=== PATIENT | male | born 1950 | race Two or more races ===

== ENCOUNTER 2019-07-20 14:28 | Inpatient (IN) | payer OTHER, MEDICARE ==
[~2019-07-20] VITALS: Ht 167.6 cm; Wt 54.4 kg
--- NOTE | 2019-07-20 15:01 | NUR ---
dr qiu at bedside for eval.
[2019-07-20] MEDS ORDERED: ALTEPLASE CATHFLO 2 MG/VIAL XX ONE (15:30)
--- NOTE | 2019-07-20 16:01 | NUR ---
CALLED DR. ALEJANDRO PT TO BE ADMITTED WITH [facility]. DR. JUANITA ALEJANDRO WILL LOOK AT THE PT.
--- NOTE | 2019-07-20 16:06 | NUR ---
CATHFLO ACTIVASE NOT ADMINISTERED. GOOD BLOOD RETURN AND FLUSHING WELL, WITNESSED BY TRI MCCURDY. PINA BELLO MADE AWARE.
--- NOTE | 2019-07-20 16:39 | NUR ---
GOT BED 328 TY.
[2019-07-20 16:40] LABS: BASOPHILS % (AUTO) 0.4 % (0.0-2.0); EOSINOPHILS % (AUTO) 6.6 % (0.0-6.0); HEMATOCRIT 25 % (39-51); HEMOGLOBIN 8.4 g/dL (13.5-17.5); LYMPHOCYTES # (AUTO) 1.7 /CMM (0.8-4.8); MEAN CORPUSCULAR HGB CONC 34 g/dl (31.0-36.0); MEAN CORPUSCULAR VOLUME 97 fL (80-96); MONOCYTES # (AUTO) 0.6 /CMM (0.1-1.30); MONOCYTES % (AUTO) 5.2 % (2.0-12.0); NEUTROPHILS # (AUTO) 8.5 /CMM (1.8-8.9); NEUTROPHILS % (AUTO) 72.8 % (43.0-81.0); PLATELET COUNT (AUTO) 214 /CMM (150-450); RED BLOOD CELL COUNT(AUTO) 2.55 MIL/uL (4.5-6.0); WHITE BLOOD COUNT (AUTO) 11.7 K/uL (4.3-11.0)
--- NOTE | 2019-07-20 16:42 | NUR ---
CALLED [facility] FOR PT TO BE ADMITTED
[2019-07-20 16:47] LABS: CALCIUM, SERUM 8.8 mg/dL (8.5-10.1); CREATININE 4.5 mg/dL (0.6-1.3); POTASSIUM 4.2 mmol/L (3.5-5.1)
--- NOTE | 2019-07-20 17:02 | NUR ---
report given to skyler boss for fredrick.
[2019-07-20] MEDS ORDERED: AMIN30LI27 GT (17:45)
[2019-07-20] MEDS ORDERED: ENTE0.5T4 GT (17:45)
[2019-07-20] MEDS ORDERED: URSO300C12 GT (17:45)
[2019-07-20] MEDS ORDERED: MELA5TAB GT (17:45)
[2019-07-20] MEDS ORDERED: VORI200T GT (17:45)
[2019-07-20] MEDS ORDERED: VITA1TAB56 GT (17:45)
[2019-07-20] MEDS ORDERED: CYCL25CA7 GT (17:45)
[2019-07-20] MEDS ORDERED: AMLO10TA7 GT (17:45)
[2019-07-20] MEDS ORDERED: ACET-868 GT (17:45)
[2019-07-20] MEDS ORDERED: FAMO20TA8 GT (17:45)
[2019-07-20] MEDS ORDERED: IPRA4AER IH (17:45)
[2019-07-20] MEDS ORDERED: CYCL25CA13 GT (17:45)
[2019-07-20] MEDS ORDERED: NPH,100V SQ (17:45)
[2019-07-20] MEDS ORDERED: NUT.237L67 GT (17:45)
[2019-07-20] MEDS ORDERED: SEVE0.8P3 GT (17:45)
[2019-07-20] MEDS ORDERED: CARB15DR EACHEYE (17:45)
[2019-07-20] MEDS ORDERED: LEVO50TA8 GT (17:45)
[2019-07-20] MEDS ORDERED: ASCO250T5 GT (17:45)
[2019-07-20] MEDS ORDERED: DEXT15DR6 EACHEYE (17:47)
--- NOTE | 2019-07-20 18:15 | NUR ---
RN NOTES RECEIVED PATIENT FROM E.R VIA BREANNE ACCOMPANIED BY E.R STAFF. NON-VERBAL, PATIENT ORIENTED TO ROOM, UNIT AND STAFF. V/S FOLLOWS: BP- 112/56, ME-102, RR-20, TEMP OF 97.7. O2 SAT OF 98%. WILL ENDORSE TO NON DESTRUCTIVE TESTING SUPERVISOR NURSE FOR ADMISSION.
[2019-07-20 20:00] VITALS: BP 126/73
--- NOTE | 2019-07-20 22:29 | NUR ---
MS/TELE/RN INITIAL ROUND AT 1930 , PATIENT WAS SLEEPING, AROUSABLE, APPEAR COMFORTABLE, NO DISTRESS NOTED, WITH TRACH TO WALL OXYGEN 1T 8 LPM, HOB ELEVATED, WILL DO ADMISSION ASSESSMENT LATER.
--- NOTE | 2019-07-20 22:32 | NUR ---
MS/TELE/RN CALLED AND SPOKE TO LATHE SPOTTER IN FACE SHEET, LULA, WALLY, DAUGHTER, FOR DIALYSIS CATHETER PLACEMENT, PER LULA, HER BROTHER WILL GIVEN THE CONSENT. SPOKE TO CHANCE CLANCY, SON OF PATIENT, WHO GAVE TELEPHONE CONSENT FOR THE SURGERY, AND WITNESSED BY TASHIA MUIR.
--- NOTE | 2019-07-20 22:35 | NUR ---
MS/TELE/RN AT 2100 ADMISSION ASSESSMENT DONE, PATIENT UNABLE TO GIVE HISTORY HE WAS NOT VERBALLY RESPONSIVE. PHYSICAL ASSESSMENT WAS DONE, PHOTOS TAKEN ON ABNORMAL FINDINGS, NURSING CARE PERFORMED, REPOSITIONED TO COMFORT. WILL MONITOR.,
--- NOTE | 2019-07-20 22:51 | NUR ---
MS/TELE/RN PATIENT WILL BE TRANSFERRED TO [facility] DUE TO R/O COVID 19 ISOLATION STATUS. REPORT GIVEN TO KAZ RODRÍGUEZ.
--- NOTE | 2019-07-20 23:15 | NUR ---
RN Notes Admitted patient from [facility], awake, non verbal. Trach intact with O2 at 8LPM tolerating well. Tele monitor reads sinus rhythm with heart rate at 96. Gt intact will start feeding. Rodriguez intact to gravity. Colostomy intact not leaking. Skin assessment done, intact. Kept dry and comfortable. Will continue to monitor.
--- NOTE | 2019-07-20 23:23 | NUR ---
MS/TELE/RN PATIENT WAS TRANSFERRED TO [facility] ROOM 105.
--- NOTE | 2019-07-20 23:38 | NUR ---
MS/TELE/RN RECEIVED PATIENT FROM [facility] VIA BED, PATIENT IS AWAKE, ALERT, ORIENTED, COMFORTABLE, NO DISTRESS NOTED, PLACED CALL LIGHT IN REACH, WILL MONITOR.
[2019-07-21] VITALS (7 sets, daily range): BP systolic 99–121; BP diastolic 56–66
[2019-07-21 06:25] LABS: BASOPHILS % (AUTO) 0.3 % (0.0-2.0); EOSINOPHILS % (AUTO) 7.3 % (0.0-6.0); HEMATOCRIT 22 % (39-51); LYMPHOCYTES % (AUTO) 11.6 % (20.0-44.0); MEAN CORPUSCULAR HGB CONC 36 g/dl (31.0-36.0); MEAN CORPUSCULAR VOLUME 97 fL (80-96); MONOCYTES # (AUTO) 0.5 /CMM (0.1-1.30); MONOCYTES % (AUTO) 6.3 % (2.0-12.0); NEUTROPHILS # (AUTO) 6.3 /CMM (1.8-8.9); NEUTROPHILS % (AUTO) 74.5 % (43.0-81.0); PLATELET COUNT (AUTO) 188 /CMM (150-450); RED BLOOD CELL COUNT(AUTO) 2.26 MIL/uL (4.5-6.0); WHITE BLOOD COUNT (AUTO) 8.5 K/uL (4.3-11.0)
[2019-07-21] MEDS: NEPRO 1,000 ML BOTTLE GT SCH ×2 (06:39→22:30)
--- NOTE | 2019-07-21 06:41 | NUR ---
RN Notes Patient stable, afebrile. No signs of distress and discomfort noted. Telemonitor reads sinus rhythm. At times patient is combative, he doesn't want to be touch. GT feeding tolerated well. Colostomy intact, not leaking and working well. Turned and repositioned per protocol. Will continue to monitor.
--- NOTE | 2019-07-21 08:00 | NUR ---
PATIENT WAS RESTING IN ROOM ROOM WHEN I ARRIVED ON THE UNIT- NO S/S OF DISTRESS- AFEBRILE- NC IN USE-VITALS STABLE- SAFETY PRECAUTIONS IN PLACE- ISOLATION ROOM ACTIVE- WILL CONTINUE TO MONITOR REPORT AND RECORD
[2019-07-21 08:49] LABS: IRON, SERUM 63 ug/dl (50-175); TOTAL IRON BINDING CAPACITY 124 ug/dl (250-450)
[2019-07-21] MEDS: POLYVINYL ALCOHOL 15 ML BOTTLE EACHEYE SCH (09:00)
[2019-07-21] MEDS: AMLODIPINE BESYLATE 10 MG TABLET GT SCH (09:00)
[2019-07-21] MEDS ORDERED: ACETAMINOPHEN 650 MG/20.3 ML UDC GT PRN (09:00)
[2019-07-21] MEDS ORDERED: POLYVINYL ALCOHOL/POVIDONE 0.4 ML DROPERETTE EACHEYE SCH (09:00)
[2019-07-21] MEDS ORDERED: NEPRO VAN 237 ML CAN GT SCH (09:00)
[2019-07-21 09:28] LABS: CHOLESTEROL 85 mg/dL (<200); FERRITIN 2807 ng/mL (8-388); HDL CHOLESTEROL 22 mg/dL (40-60); LDL 34 mg/dL (0-99); MAGNESIUM 2.7 mg/dL (1.8-2.4); PHOSPHORUS 3.5 mg/dL (2.5-4.9); THYROID STIMULATING HORMONE 2.359 uIU/mL (0.358-3.74); TRIGLYCERIDES 392 mg/dL (30-150)
[2019-07-21 10:29] LABS: C-REACTIVE PROTEIN 5.8 mg/dL (0.0-0.9)
--- NOTE | 2019-07-21 11:00 | NUR ---
CIRA HELD D/T PENDING HEMODIALYSIS
[2019-07-21] MEDS: IPRATROPIUM/ALBUTEROL INHALER IH SCH ×2 (12:00→18:00)
--- NOTE | 2019-07-21 12:01 | NUR ---
jonathan with pharmacy in regards to home med rec- I have contacted family in regards to get getting clarification about medications dose and indication as well as requesting 3 medication that are not available here at the pharmacy to be brought to the hospital so we can admin - entacavir, Melatonin, Cyclosprine and inquired about the Vfend- (indication and duration of rx- will continue to monitor report and record - patietn resting in room- vitals stable - no s/s of distress- safety precautions in place- changed colostomy - will continue to monitor report and record
[2019-07-21] MEDS: LEVOTHYROXINE SODIUM 50 MCG TABLET GT SCH (12:40)
[2019-07-21] MEDS: SEVELAMER CARBONATE 0.8 GM POWD.PACK GT SCH ×2 (12:40→17:41)
[2019-07-21] MEDS: ASCORBIC ACID 500 MG TABLET GT SCH (12:40)
[2019-07-21] MEDS: VITAMIN B COMP W-C 1 TAB TABLET GT SCH (12:41)
[2019-07-21] MEDS: URSODIOL 300 MG CAPSULE GT SCH ×3 (13:00→17:40)
[2019-07-21] MEDS ORDERED: INSULIN NPH, HUMAN ISOPHANE 100 UNIT/ML VIAL SQ SCH (13:00)
--- NOTE | 2019-07-21 14:00 | NUR ---
PATIENT CURRENTLY RESTING IN BED -AFEBRILE, NO S/S OF DISTRESS- NO SOB- CURRENTLY RECEIVING HEMODIALYSIS- VITALS STABLE - SAFETY PRECAUTIONS IN PLACE- WILL CONTINUE TO MONITOR REPORT AND RECORD
[2019-07-21] MEDS ORDERED: DEXTROSE 50%-WATER 50 ML DISP.SYRIN IV PRN ×3 (14:30→15:00)
[2019-07-21] MEDS ORDERED: INSULIN REGULAR, HUMAN 100 UNIT/ML 3 ML VIAL SQ PRN ×2 (14:30)
[2019-07-21] MEDS: ALBUMIN 25% 25 GM in PREMIX 1 EA IV PRN (15:05)
[2019-07-21] MEDS: INSULIN REGULAR, HUMAN 100 UNIT/ML 3 ML VIAL SQ PRN ×2 (15:17→18:32)
--- NOTE | 2019-07-21 16:00 | NUR ---
CONTACT [facility] TO CLARIFY ORDERS - FACILITY REQUESTED PATIENT TO REMAIN ON vFEND UNTIL PATIENT RETURNED TO FACILITY- CONTACT THE MD REGARDS TO SSI WELL ACCU CHECK - RECEIVED ORDER FOR BOTH - PHARMACY HAS PLACED ORDERS- WILL CONTINUE TO CLARIFY ORDERS FOR THE PATIENT, FAMILY AND PHARMACY- CONTACTED FWIFE IN [place] TO OBTAIN CONSENT FOR PLACEMENT OF A CATHTER FOR DIALYSIS- I WAS GIVEN A NUMBER FOR ABU [phone], [phone]- WAS UNABLE TO MAKE CONTACT ON EITHER NUMBER - LEFT A MESSAGE
[2019-07-21] MEDS: PROSOURCE / PROSTAT (PYXIS) 30 ML UDC GT SCH ×2 (17:47→17:48)
[2019-07-21] MEDS ORDERED: BLOOD SUGAR DIAGNOSTIC 1 EACH STRIP IN SCH ×2 (18:00)
[2019-07-21] MEDS ORDERED: HEPARIN-LOCK FLUSH PORCINE PF 100 UNITS/1 ML (10 ML)DISP.SYRIN IV ONE (18:30)
[2019-07-21] MEDS: BLOOD SUGAR DIAGNOSTIC 1 EACH STRIP IN SCH (18:30)
[2019-07-21] MEDS ORDERED: HEPARIN SODIUM, PORCINE 5000 UNITS/1 ML VIAL IV ONE (18:30)
--- NOTE | 2019-07-21 18:58 | NUR ---
PATIENT IN PROCEDURE - WAS UNABLE TO RECEIVED 1800 TX
--- NOTE | 2019-07-21 19:30 | NUR ---
CAVALRY SCOUT NOTE RECEIVED PATIENT IN BED. A/O X1, NONVERBAL, IS ABLE TO FOLLOW COMMANDS. HAS TRACH PORTEX#7 CONNECTED TO OXYGEN 8L/MIN. RESPIRATIONS ARE EVEN AND UNLABORED. NO S/S SOB NOTED. NO C/O PAIN AT THIS TIME. EXTERNAL TELE MONITOR READ SINUS TACHYCARDIA HR 128. IN NO APPARENT DISTRESS. IV ACCESS IN RAC MIDLINE PATENT AND SALINE LOCKED. COLOSTOMY BAG IS PRESENT, DRAINING GREEN SEMI FORMED. BAH CATHETER IS PRESENT, DRAINING TO GRAVITY. GTUBE IS PRESENT, ASPIRATED, RESIDUAL 30ML, FLUSHED WITH 100ML NO RESISTANCE, CLAMPED. BED ISLOW AN DLOCKED, HOB ELEVATED IN HIGH FOWLERS, SIDE RIALS UP X2, BED ALARM ON. CALL LIGHT WITHIN REACH. WILL CONTINUE TO MONITOR.
[2019-07-21] MEDS: VORICONAZOLE 200 MG TABLET GT SCH ×2 (21:00→22:14)
--- NOTE | 2019-07-21 21:42 | NUR ---
ARTISTS' BOOKING REPRESENTATIVE NOTE DID NOT ADMINISTERED VFEND D/T IT IS A PATIENTS HOME MEDICATION AND WE DO NOT HAVE IT STOCKED IN OUR PHARMACY. CHECKED CASSETTE AND FAMILY HAS NO DELIVERED MEDICATION YET. WILL INFORM DAY SHIFT FOR FOLLOW UP. Addendum: 07/21/19 at 2213 by CONCHITA FLORES RN please disregard note above. nursing building maintenance supervisor was able to obtain medication from night locker. will administer now.
[2019-07-21] MEDS ORDERED: VORICONAZOLE 200 MG TABLET ONE (21:57)
[2019-07-21] MEDS ORDERED: Medication Not On Formulary EA (Melatonin 5 MG) GT SCH (22:00)
--- NOTE | 2019-07-21 22:35 | NUR ---
ASSISTANT ASSOCIATE FULL PROFESSOR NOTE CALLED RECREATION ATTENDANT MD PALMIRA CARBALLO TO REQUEST FOR RIGHT SOFT WRIST RESTRAINT D/T PATIENT HAS A NEW RIJ GIANNA CATH PLACED TODAY AND PATIENT CONTINUE TO TRY AND TUG ON THE LINE. TELEPHONE ORDER FOR RIGHT SOFT WRIST RESTRAINT OBTAINED. ORDER READ BACK NOTED AND CARRIED OUT. WILL CONTINUE TO MONITOR.
[2019-07-22] VITALS (7 sets, daily range): BP systolic 98–133; BP diastolic 55–64
[2019-07-22] MEDS: IPRATROPIUM/ALBUTEROL INHALER IH SCH ×4 (00:53→18:10)
[2019-07-22] MEDS: BLOOD SUGAR DIAGNOSTIC 1 EACH STRIP IN SCH ×4 (00:53→18:10)
[2019-07-22] MEDS: INSULIN REGULAR, HUMAN 100 UNIT/ML 3 ML VIAL SQ PRN ×4 (00:58→18:30)
--- NOTE | 2019-07-22 08:00 | NUR ---
OFFICE SERVICES REPRESENTATIVE OPENING NOTES Received Patient asleep and resting in bed. A/O x 1, non-verbal. VS stable with no acute distress. Breathing even and unlabored on room T-Piece with no respiratory distress. Telemonitor in place and patent reading Sinus Tach with HR-104. Colostomy in place and patent. Rodriguez Cath in place and patent. Gtube in place and patent with Nephro at 70ml/hr. RIJ Clyde Cath in place. RAC Midline clean, intact, patent and flushing well. 22g PIV on Left Hand clean, intact, patent and flushing well. Safety precautions in place. Bed locked and set to lowest position with side rails x 2 up. All needs rendered at this time. Call light within reach. Will continue to monitor.
[2019-07-22] MEDS: AMLODIPINE BESYLATE 10 MG TABLET GT SCH (09:00)
[2019-07-22] MEDS ORDERED: ENTECAVIR 0.5 MG GT SCH (09:00)
[2019-07-22] MEDS: POLYVINYL ALCOHOL 15 ML BOTTLE EACHEYE SCH (09:00)
[2019-07-22] MEDS: LEVOTHYROXINE SODIUM 50 MCG TABLET GT SCH (09:39)
[2019-07-22] MEDS: FAMOTIDINE (20 MG) 20 MG TABLET GT SCH (09:39)
[2019-07-22] MEDS: ASCORBIC ACID 500 MG TABLET GT SCH (09:40)
[2019-07-22] MEDS: VITAMIN B COMP W-C 1 TAB TABLET GT SCH (09:40)
[2019-07-22] MEDS: SEVELAMER CARBONATE 0.8 GM POWD.PACK GT SCH ×3 (09:40→18:07)
[2019-07-22] MEDS: PROSOURCE / PROSTAT (PYXIS) 30 ML UDC GT SCH ×2 (09:42→18:07)
[2019-07-22] MEDS: URSODIOL 300 MG CAPSULE GT SCH ×3 (09:42→18:10)
[2019-07-22] MEDS ORDERED: cycloSPORINE SOLUTION 500 MG/5 ML UDC GT SCH ×3 (12:00→18:00)
[2019-07-22] MEDS: ALBUMIN 25% 25 GM in PREMIX 1 EA IV PRN (12:18)
[2019-07-22] MEDS ORDERED: EPOETIN ALFA (10,000 UNIT) 10,000 UNIT/ML VIAL IV ONE (14:00)
[2019-07-22] MEDS: NEPRO 1,000 ML BOTTLE GT SCH (18:18)
--- NOTE | 2019-07-22 19:14 | NUR ---
THEATRICAL AGENT CLOSING NOTES Patient asleep and resting in bed. A/O x 1, non-verbal. VS stable with no acute distress. Breathing even and unlabored on room T-Piece with no respiratory distress. Telemonitor in place and patent reading Sinus Tach with HR-107. Colostomy in place and patent. Rodriguez Cath in place and patent. Gtube in place and patent with Nephro at 70ml/hr. RIJ Clyde Cath in place. RAC Midline clean and intact. 22g PIV on Left Hand clean, intact, patent and flushing well. Safety precautions in place. Bed locked and set to lowest position with side rails x 2 up. All needs rendered at this time. Call light within reach. Will endorse plan of care to oncoming shift.
--- NOTE | 2019-07-22 19:30 | NUR ---
SLOT FLOORPERSON NOTES ON T-PIECE AT 8LITERS TOLERATED WELL
--- NOTE | 2019-07-22 20:15 | NUR ---
GEOLOGICAL TECHNICIAN NOTES RECEIVED ON BED A/O X1,CONFUSED,ON BILATERAL SOFT WRIST RESTRAINTS,TRYING TO PULL OUT IV TUBING,BAH CATH IN PLACE DRAINING SCANTY OUTPUT,WITH HD TREATMENT.WITH GT FEEDING OF NEPRO AT 70ML/HR RATE TOLERATED WELL.NOTED 10ML RESIDUAL VOLUME.HOB ELEVATED FOR ASPIRATION PRECAUTION.ON GEL BED FOR SKIN MANAGEMENT.REPOSITION PER PROTOCOL.WILL CONTINUE TO MONITOR STATUS.
[2019-07-22] MEDS: MUPIROCIN OINT 2% 22 GM TUBE SCH (21:00)
--- NOTE | 2019-07-22 21:00 | NUR ---
BRONC BREAKER NOTES ACCU-CHECK BLOOD SUGAR CHECK 257,DUE NOVOLIN N 20 UNITS GIVEN SQ SCHEDULED.
[2019-07-22] MEDS: VORICONAZOLE 200 MG TABLET GT SCH (21:12)
[2019-07-22] MEDS: INSULIN NPH, HUMAN ISOPHANE 100 UNIT/ML VIAL SQ SCH (21:25)
[2019-07-23] VITALS: BP 112/62
[2019-07-23] MEDS: BLOOD SUGAR DIAGNOSTIC 1 EACH STRIP IN SCH ×4 (00:20→17:21)
[2019-07-23] MEDS: INSULIN REGULAR, HUMAN 100 UNIT/ML 3 ML VIAL SQ PRN ×3 (00:23→12:24)
[2019-07-23] MEDS: IPRATROPIUM/ALBUTEROL INHALER IH SCH ×4 (00:25→17:23)
--- NOTE | 2019-07-23 00:32 | NUR ---
ART CLASS MODEL NOTES ACCU-CHECK BLOOD SUGAR CHECK 327,COVERED WITH HUMULIN R 12 UNITS PER SLIDING SCALE.GT FEEDING IN PROGRESS.
[2019-07-23 04:00] VITALS: BP 126/67
--- NOTE | 2019-07-23 05:30 | NUR ---
STITCH BONDING MACHINE OPERATOR NOTES ACCU-CHECK BLOOD SUGAR CHECK 365,DUE NOVOLIN N 20 UNITS ADMINSITERED SCHEDULED.
[2019-07-23] MEDS: INSULIN NPH, HUMAN ISOPHANE 100 UNIT/ML VIAL SQ SCH ×3 (05:42→21:00)
--- NOTE | 2019-07-23 06:30 | NUR ---
FOREMAN/PROJECT MANAGER NOTES BLOOD SUGAR 365,GIVEN 15 UNITS OF HUMULIN R PER SLIDING SCALE.GT FEEDING IN PROGRESS.
--- NOTE | 2019-07-23 06:40 | NUR ---
SEQUINS STRINGER NOTES BLOOD SUGAR REMAINS ELEVATED,NO URINE OUTPUT,DIALYSIS PATIENT.COLOSTOMY EMPTIED 400ML LIQUID STOOL.REPOSITION PER PROTOCOL,IN NO ACUTE DISTRESS.WILL ENDORSE TO DAY NURSE FOR ADAN.
--- NOTE | 2019-07-23 07:30 | NUR ---
FARM MACHINERY ENGINE MECHANIC NOTES PT IN BED, ASLEEP, EASY TO AROUSE, NON VERBAL, GT FEEDING INFUSING, RIGHT IJ GIANNA CATH IN PLACE, NO BLEEDING NOTED, F/C DRAINING MINIMALLY WITH LORRAINE COLORED URINE, KEPT CLEAN AND DRY, REPOSITIONED FOR COMFORT.
[2019-07-23 08:40] LABS: BASOPHILS % (AUTO) 0.4 % (0.0-2.0); EOSINOPHILS % (AUTO) 8.7 % (0.0-6.0); HEMATOCRIT 23 % (39-51); HEMOGLOBIN 7.7 g/dL (13.5-17.5); LYMPHOCYTES # (AUTO) 1.4 /CMM (0.8-4.8); LYMPHOCYTES % (AUTO) 14.5 % (20.0-44.0); MEAN CORPUSCULAR HGB CONC 34 g/dl (31.0-36.0); MEAN CORPUSCULAR VOLUME 99 fL (80-96); MONOCYTES # (AUTO) 0.4 /CMM (0.1-1.30); MONOCYTES % (AUTO) 4.5 % (2.0-12.0); NEUTROPHILS # (AUTO) 6.8 /CMM (1.8-8.9); NEUTROPHILS % (AUTO) 71.9 % (43.0-81.0); PLATELET COUNT (AUTO) 171 /CMM (150-450); RED BLOOD CELL COUNT(AUTO) 2.29 MIL/uL (4.5-6.0); WHITE BLOOD COUNT (AUTO) 9.4 K/uL (4.3-11.0)
[2019-07-23 08:47] VITALS: BP 135/65
[2019-07-23] MEDS: cycloSPORINE SOLUTION 500 MG/5 ML UDC GT SCH (09:00)
[2019-07-23 09:11] LABS: CALCIUM, SERUM 8.9 mg/dL (8.5-10.1); CREATININE 3.4 mg/dL (0.6-1.3); POTASSIUM 3.3 mmol/L (3.5-5.1)
[2019-07-23] MEDS: LEVOTHYROXINE SODIUM 50 MCG TABLET GT SCH (09:33)
[2019-07-23] MEDS: FAMOTIDINE (20 MG) 20 MG TABLET GT SCH (09:33)
[2019-07-23] MEDS: MUPIROCIN OINT 2% 22 GM TUBE SCH ×2 (09:45→21:12)
[2019-07-23] MEDS: URSODIOL 300 MG CAPSULE GT SCH ×3 (09:45→17:00)
[2019-07-23] MEDS: SEVELAMER CARBONATE 0.8 GM POWD.PACK GT SCH ×3 (09:45→17:00)
[2019-07-23] MEDS: AMLODIPINE BESYLATE 10 MG TABLET GT SCH (09:45)
[2019-07-23] MEDS: VORICONAZOLE 200 MG TABLET GT SCH ×2 (09:45→21:00)
[2019-07-23] MEDS: VITAMIN B COMP W-C 1 TAB TABLET GT SCH (09:46)
[2019-07-23] MEDS: ASCORBIC ACID 500 MG TABLET GT SCH (09:46)
[2019-07-23] MEDS: PROSOURCE / PROSTAT (PYXIS) 30 ML UDC GT SCH ×2 (09:51→17:00)
[2019-07-23 15:56] VITALS: BP 117/71
--- NOTE | 2019-07-23 17:03 | NUR ---
JEWELRY BENCH WORKER NOTES PT IN BED, RESTING, NO SIGN OF PAIN OR DISTRESS, REPOSITIONED FOR COMFORT, F/C INTACT, NOTED GT CLOGGED, SEVERAL NURSES CHECKED AND TRIED TO FIX IT BUT STILL CLOGGED, DR. TOVAR NOTIFIED, ORDERED TO MONITOR BLOOD SUGAR AND HOLD ALL INSULIN FOR NOW.
[2019-07-23] MEDS: POLYVINYL ALCOHOL 15 ML BOTTLE EACHEYE SCH (17:21)
--- NOTE | 2019-07-23 18:49 | NUR ---
FELLING MACHINE OPERATOR NOTES PT IN BED, RESTING, NON VERBAL, NO SIGN OF PAIN OR DISTRESS, NO LEAKING NOTED AT GT SITE, NO BLEEDING NOTED AT RIGHT IJ DIALYSIS CATH, TURNED AND REPOSITIONED Q2 HOURS, ON BILATERAL SOFT WRIST RESTRAINTS, PT STILL ATTEMPTING TO PULL LINES AND TUBES, PM CARE PROVIDED.
--- NOTE | 2019-07-23 19:56 | NUR ---
CHILD CUSTODY EVALUATOR NOTES PATIENT RECEIVED RESTING IN BED A/O X 1 NON VERBAL. ON TRACH COLLAR WITH 8L OF O2, BREATHING EVEN AND UNLABORED, NO SOB NOTED. NO SIGNS OF ACUTE DISTRESS. NO COMPLAINTS OF PAIN OR DISCOMFORT- NO FACIAL GRIMACING NOTED. TELE MONITOR READING SINUS RHYTHM. BAH CATHETER NOTED AND IN PLACE WITH DARK LORRAINE URINE, COLOSTOMY ON ABDOMEN NOTED. R AC MIDLINE, IV ON L HAND #22, AND R IJ BELA CATH NOTED AND IN PLACE. GT TUBE IN PLACE- NOT WORKING. BILATERAL SOFT WRIST RESTRAINTS IN PLACE, SKIN INTACT, NO REDNESS, PULSE PRESENT. SAFETY PRECAUTIONS IN PLACE WITH BED IN LOWEST POSITION, CALL LIGHT WITHIN REACH, BREAKS ON, AND SIDE RAILS UP. WILL CONTINUE TO MONITOR THROUGHOUT THE SHIFT.
[2019-07-23 20:00] VITALS: BP 120/79
--- NOTE | 2019-07-23 21:13 | NUR ---
SOLAR PANEL INSTALLATION SUPERVISOR NOTE NON ADMINISTER GT MEDS DUE TO GTUBE MALFUNCTION, NOT ABLE TO BE FLUSHED. DID NOT ADMINISTER INSULIN DUE TO PATIENT NPO AND NOT RECEIVING FLUIDS OR GTUBE FEEDING. WILL CONTINUE TO MONITOR PATIENT.
[2019-07-24] VITALS: BP_SYST 120; BP_DIAS 68; BP_DIAS 79
[2019-07-24] MEDS: BLOOD SUGAR DIAGNOSTIC 1 EACH STRIP IN SCH ×4 (00:49→17:31)
[2019-07-24 04:00] VITALS: BP 137/67
[2019-07-24] MEDS: INSULIN NPH, HUMAN ISOPHANE 100 UNIT/ML VIAL SQ SCH ×3 (05:00→21:00)
--- NOTE | 2019-07-24 06:39 | NUR ---
TELE CLOSING NOTES PATIENT RESTING IN BED A/O X 1 NON VERBAL. ON TRACH COLLAR WITH 4L OF O2, BREATHING EVEN AND UNLABORED, NO SOB NOTED. NO SIGNS OF ACUTE DISTRESS. NO COMPLAINTS OF PAIN OR DISCOMFORT- NO FACIAL GRIMACING NOTED. TELE MONITOR READING SINUS RHYTHM. BAH CATHETER NOTED AND IN PLACE WITH DARK LORRAINE URINE, COLOSTOMY ON ABDOMEN NOTED. R AC MIDLINE, IV ON L HAND #22, AND R IJ GIANNA CATH NOTED AND IN PLACE. GT TUBE IN PLACE- NOT WORKING, NO INSULIN GIVEN THROUGHOUT THE NIGHT. BILATERAL SOFT WRIST RESTRAINTS IN PLACE, SKIN INTACT, NO REDNESS, PULSE PRESENT. SAFETY PRECAUTIONS IN PLACE WITH BED IN LOWEST POSITION, CALL LIGHT WITHIN REACH, BREAKS ON, AND SIDE RAILS UP. PATIENT KEPT CLEAN AND DRY, ALL NEEDS ATTENDED TO. WILL ENDORSE TO ONCOMING SHIFT ABOUT ADAN.
--- NOTE | 2019-07-24 07:30 | NUR ---
ORNAMENTER NOTES RECEIVED RESTING IN BED A/O X 1 NON VERBAL. ON TRACH COLLAR WITH 8L OF O2, BREATHING EVEN AND UNLABORED, NO SIGNS OF ACUTE DISTRESS NOTED AT THIS TIME. NO COMPLAINTS OF PAIN OR DISCOMFORT- NO FACIAL GRIMACING NOTED. TELE MONITOR READING SINUS RHYTHM. BAH CATHETER NOTED AND IN PLACE WITH DARK LORRAINE URINE, COLOSTOMY ON ABDOMEN NOTED. R AC MIDLINE, IV ON L HAND #22, AND R IJ BELA CATH NOTED AND IN PLACE. GT TUBE IN PLACE- NOT WORKING. BILATERAL SOFT WRIST RESTRAINTS IN PLACE, SKIN INTACT, NO REDNESS, PULSE PRESENT. SAFETY PRECAUTIONS IN PLACE WITH BED IN LOWEST POSITION, CALL LIGHT WITHIN REACH, BREAKS ON, AND SIDE RAILS UP. WILL CONTINUE TO MONITOR.
--- NOTE | 2019-07-24 07:40 | NUR ---
RN NOTES SEEN AND EXAMINED BY DR. TOVAR. CHECKED THE G-TUBE SITE, FLUSHING WELL WITH NO LEAKAGE. PER MD. OKAY TO GIVE MEDICATION AND WATER FOR NOW. WILL CONTINUE TO MONITOR.
[2019-07-24 08:00] VITALS: BP 134/66
[2019-07-24] MEDS: FAMOTIDINE (20 MG) 20 MG TABLET GT SCH (08:40)
[2019-07-24] MEDS: SEVELAMER CARBONATE 0.8 GM POWD.PACK GT SCH ×3 (08:41→17:30)
[2019-07-24] MEDS: ASCORBIC ACID 500 MG TABLET GT SCH (08:41)
[2019-07-24] MEDS: AMLODIPINE BESYLATE 10 MG TABLET GT SCH (08:41)
[2019-07-24] MEDS: VITAMIN B COMP W-C 1 TAB TABLET GT SCH (08:41)
[2019-07-24] MEDS: LEVOTHYROXINE SODIUM 50 MCG TABLET GT SCH (08:42)
[2019-07-24] MEDS: URSODIOL 300 MG CAPSULE GT SCH ×3 (08:43→17:29)
[2019-07-24] MEDS: VORICONAZOLE 200 MG TABLET GT SCH ×2 (08:43→21:02)
[2019-07-24] MEDS: POLYVINYL ALCOHOL 15 ML BOTTLE EACHEYE SCH (08:44)
[2019-07-24 08:45] LABS: BASOPHILS % (AUTO) 0.3 % (0.0-2.0); HEMATOCRIT 22 % (39-51); HEMOGLOBIN 7.8 g/dL (13.5-17.5); LYMPHOCYTES # (AUTO) 0.9 /CMM (0.8-4.8); LYMPHOCYTES % (AUTO) 8.9 % (20.0-44.0); MEAN CORPUSCULAR HGB CONC 35 g/dl (31.0-36.0); MEAN CORPUSCULAR VOLUME 98 fL (80-96); MONOCYTES # (AUTO) 0.5 /CMM (0.1-1.30); MONOCYTES % (AUTO) 4.9 % (2.0-12.0); NEUTROPHILS # (AUTO) 7.8 /CMM (1.8-8.9); NEUTROPHILS % (AUTO) 76.9 % (43.0-81.0); PLATELET COUNT (AUTO) 180 /CMM (150-450); RED BLOOD CELL COUNT(AUTO) 2.28 MIL/uL (4.5-6.0); WHITE BLOOD COUNT (AUTO) 10.2 K/uL (4.3-11.0)
[2019-07-24] MEDS: PROSOURCE / PROSTAT (PYXIS) 30 ML UDC GT SCH ×2 (08:45→17:30)
[2019-07-24] MEDS: MUPIROCIN OINT 2% 22 GM TUBE SCH ×2 (08:45→21:10)
[2019-07-24 08:47] LABS: CALCIUM, SERUM 8.7 mg/dL (8.5-10.1); CREATININE 3.9 mg/dL (0.6-1.3); POTASSIUM 3.1 mmol/L (3.5-5.1)
[2019-07-24] MEDS: cycloSPORINE SOLUTION 500 MG/5 ML UDC GT SCH (09:00)
--- NOTE | 2019-07-24 09:00 | NUR ---
RN NOTES DIALYSIS NURSE ON UNIT, WILL START DIALYSIS, NO SIGNS OF DISTRESS NOTED AT THIS TIME. WILL CONTINUE TO MONITOR.
--- NOTE | 2019-07-24 09:04 | NUR ---
RN NOTES CALLED PHARMACY REGARDING CYCLOSPORINE, PER PHARMACY MEDICATION IS NOT AVAILABLE AT THIS TIME. THEY WILL CALL WHEN THE MED IS AVAILABLE. WILL F/U.
--- NOTE | 2019-07-24 12:00 | NUR ---
RN NOTES JUST FINISHED DIALYSIS, NO SIGNS OF DISTRESS NOTED. NO OUTPUT PER DIALYSIS NURSE JUST CLEANSING. WILL CONTINUE TO MONITOR.
[2019-07-24] MEDS: POTASSIUM CHLORIDE 20 MEQ TAB.PRT.SR PO SCH ×3 (12:55→15:11)
[2019-07-24 16:00] VITALS: BP 119/70
--- NOTE | 2019-07-24 18:43 | NUR ---
ENTERTAINMENT REPORTER NOTES RESTING IN BED A/O X 1 NON VERBAL. ON TRACH COLLAR WITH 8L OF O2, BREATHING EVEN AND UNLABORED, NO SIGNS OF ACUTE DISTRESS NOTED THROUGHOUT THE SHIFT. NO COMPLAINTS OF PAIN OR DISCOMFORT- NO FACIAL GRIMACING NOTED. BAH CATHETER NOTED AND IN PLACE WITH DARK LORRAINE URINE, COLOSTOMY ON ABDOMEN NOTED. R AC MIDLINE, IV ON L HAND #22, AND R IJ BELA CATH NOTED AND IN PLACE. GT TUBE IN PLACE PER MD, WATER AND MEDICATIONS ONLY, NPO MIDNIGHT FOR PERMACATH PLACEMENT IN AM, CONSENT SIGNED. BILATERAL SOFT WRIST RESTRAINTS IN PLACE, SKIN INTACT, NO REDNESS, PULSE PRESENT. SAFETY PRECAUTIONS IN PLACE WITH BED IN LOWEST POSITION, CALL LIGHT WITHIN REACH, BREAKS ON, AND SIDE RAILS UP. WILL ENDORSE TO COLLEGE ATHLETIC DIRECTOR NURSE FOR ADAN. Addendum: 07/24/19 at 1846 by PERLA FREEDMAN RN D/C FROM [employer] [employer] PATIENT.
--- NOTE | 2019-07-24 19:30 | NUR ---
TELE OPENING RN NOTES PATIENT RECEIVED RESTING IN BED A/O X 1 NON VERBAL. ON TRACH COLLAR WITH 4L OF O2, BREATHING EVEN AND UNLABORED, NO SOB NOTED. NO SIGNS OF ACUTE DISTRESS. NO COMPLAINTS OF PAIN OR DISCOMFORT- NO FACIAL GRIMACING NOTED. TELE MONITOR READING SINUS RHYTHM. BAH CATHETER NOTED AND IN PLACE WITH DARK LORRAINE URINE, COLOSTOMY ON ABDOMEN NOTED. R AC MIDLINE, IV ON L HAND #22, AND R IJ BELA CATH NOTED AND IN PLACE. GT TUBE IN PLACE FOR FLUIDS AND MEDS ONLY. PATIENT NPO FOR PERMACATH PLACEMENT TOMORROW. BILATERAL SOFT WRIST RESTRAINTS IN PLACE, SKIN INTACT, NO REDNESS, PULSE PRESENT. SAFETY PRECAUTIONS IN PLACE WITH BED IN LOWEST POSITION, CALL LIGHT WITHIN REACH, BREAKS ON, AND SIDE RAILS UP. WILL CONTINUE TO MONITOR THROUGHOUT THE SHIFT.
[2019-07-24 20:00] VITALS: BP 105/65
--- NOTE | 2019-07-24 21:11 | NUR ---
MS RN NOTE DID NOT ADMINISTER INSULIN DUE TO PT BEING NPO AND NOT RECEIVING AND GTUBE FEEDING. BS 115. PROCEDURE TOMORROW. WILL CONTINUE TO MONITOR.
[2019-07-25] MEDS: BLOOD SUGAR DIAGNOSTIC 1 EACH STRIP IN SCH ×4 (00:11→18:29)
[2019-07-25] MEDS: INSULIN NPH, HUMAN ISOPHANE 100 UNIT/ML VIAL SQ SCH ×3 (05:00→23:07)
--- NOTE | 2019-07-25 06:52 | NUR ---
TELE CLOSING RN NOTES PATIENT RESTING IN BED A/O X 1 NON VERBAL. ON TRACH COLLAR WITH 3L OF O2, BREATHING EVEN AND UNLABORED, NO SOB NOTED. NO SIGNS OF ACUTE DISTRESS. NO COMPLAINTS OF PAIN OR DISCOMFORT- NO FACIAL GRIMACING NOTED. BAH CATHETER NOTED AND IN PLACE WITH DARK LORRAINE URINE, COLOSTOMY ON ABDOMEN NOTED. R AC MIDLINE, IV ON L HAND #22, AND R IJ BELA CATH NOTED AND IN PLACE. GT TUBE IN PLACE FOR FLUIDS AND MEDS ONLY. PATIENT KEPT NPO FOR PERMACATH PLACEMENT. BILATERAL SOFT WRIST RESTRAINTS IN PLACE, SKIN INTACT, NO REDNESS, PULSE PRESENT. SAFETY PRECAUTIONS IN PLACE WITH BED IN LOWEST POSITION, CALL LIGHT WITHIN REACH, BREAKS ON, AND SIDE RAILS UP.ALL NEEDS ATTENDED TO. PATIENT KEPT CLEAN AND DRY. WILL ENDORSE TO ONCOMING SHIFT ABOUT ADAN.
[2019-07-25] MEDS ORDERED: ANESTHESIA TRAY IN PYXIS 1 EA TRAY MC ONE (07:02)
[2019-07-25] MEDS: LEVOTHYROXINE SODIUM 50 MCG TABLET GT SCH (07:30)
[2019-07-25] MEDS: FAMOTIDINE (20 MG) 20 MG TABLET GT SCH (07:30)
[2019-07-25] MEDS ORDERED: HEPARIN SODIUM, PORCINE 1,000 UNIT/ML VIAL ONE (07:33)
[2019-07-25] MEDS ORDERED: LIDOCAINE HCL/PF 1% 30 ML SDV ONE (07:33)
[2019-07-25 07:43] LABS: BASOPHILS % (AUTO) 0.5 % (0.0-2.0); EOSINOPHILS % (AUTO) 7.8 % (0.0-6.0); HEMATOCRIT 23 % (39-51); HEMOGLOBIN 7.6 g/dL (13.5-17.5); LYMPHOCYTES # (AUTO) 1.1 /CMM (0.8-4.8); LYMPHOCYTES % (AUTO) 11.1 % (20.0-44.0); MEAN CORPUSCULAR HGB CONC 33 g/dl (31.0-36.0); MEAN CORPUSCULAR VOLUME 101 fL (80-96); MONOCYTES # (AUTO) 0.5 /CMM (0.1-1.30); MONOCYTES % (AUTO) 5.2 % (2.0-12.0); NEUTROPHILS # (AUTO) 7.6 /CMM (1.8-8.9); NEUTROPHILS % (AUTO) 75.4 % (43.0-81.0); PLATELET COUNT (AUTO) 202 /CMM (150-450); RED BLOOD CELL COUNT(AUTO) 2.25 MIL/uL (4.5-6.0); WHITE BLOOD COUNT (AUTO) 10.1 K/uL (4.3-11.0)
--- NOTE | 2019-07-25 07:52 | NUR ---
MS/RN NOTE THE PATIENT IS RECEIVED IN BED. PATIENT ALERT AND ORIENTED TO SELF, NON-VERBAL. PATIENT IS ON TRACH COLLAR WITH 3L OF OXYGEN. NO MANIFESTATION OF DISTRESS NOTED. RAC MIDLINE PATENT AND SALINE LOCKED. LEFT HAND G 22 PATENT AND SALINE LOCKED. RIJ GIANNA CATH PRESENT. BAH CATH AND COLOSTOMY BAG IN PLACE. GT PRESENT. PATIENT IS ON BILATERAL SOFT WRIST RESTRAINS. ASSESSED AND NO SKIN BREAKDOWN, NO S/S POOR CIRCULATION NOTED. BED LOW AND LOCKED. SIDE RAILS UP X3. CALL LIGHT WITHIN REACH. WILL CONTINUE TO MONITOR.
[2019-07-25 07:54] LABS: CALCIUM, SERUM 9.1 mg/dL (8.5-10.1); CREATININE 2.8 mg/dL (0.6-1.3); POTASSIUM 5.5 mmol/L (3.5-5.1)
[2019-07-25 08:00] VITALS: BP 113/76
[2019-07-25] MEDS: cycloSPORINE SOLUTION 500 MG/5 ML UDC GT SCH (09:00)
[2019-07-25] MEDS: URSODIOL 300 MG CAPSULE GT SCH ×3 (09:00→18:28)
[2019-07-25] MEDS: VITAMIN B COMP W-C 1 TAB TABLET GT SCH (09:00)
[2019-07-25] MEDS: PROSOURCE / PROSTAT (PYXIS) 30 ML UDC GT SCH ×2 (09:00→18:29)
[2019-07-25] MEDS: AMLODIPINE BESYLATE 10 MG TABLET GT SCH (09:00)
[2019-07-25] MEDS: VORICONAZOLE 200 MG TABLET GT SCH ×2 (09:00→22:54)
[2019-07-25] MEDS: SEVELAMER CARBONATE 0.8 GM POWD.PACK GT SCH ×3 (09:00→18:28)
[2019-07-25] MEDS: ASCORBIC ACID 500 MG TABLET GT SCH (09:00)
--- NOTE | 2019-07-25 09:00 | NUR ---
MS/RN NOTE RECEIVED ORDER FROM MANAN ESPINOZA CAP WITH 3L OXYGEN VIA NASAL CANNULA. NOTED AND CARRIED OUT.
--- NOTE | 2019-07-25 10:30 | NUR ---
MS/RN NOTE 0900 DUE MEDICATIONS NOT ADMINISTERED DUE TO PATIENT WAITING FOR SURGERY (NPO).
[2019-07-25] MEDS: MUPIROCIN OINT 2% 22 GM TUBE SCH ×2 (11:22→21:00)
[2019-07-25] MEDS: POLYVINYL ALCOHOL 15 ML BOTTLE EACHEYE SCH (11:23)
--- NOTE | 2019-07-25 12:00 | NUR ---
MS/RN NOTE PER DR HAGAN THE SURGERY FOR PERMA CATH PLACEMENT IS CANCELED DUE TO PATIENT`S RESPONSIBLE LIBERTARIAN WANTS TO TALK TO NEPHROLOGY BEFORE DECIDING FOR SURGERY. DR RG IS MADE AWARE AND HE SAID HE WILL CALL THE FAMILY. ALSO, DR FADY WISE IS MADE AWARE OF SURGERY BEING CANCELED
[2019-07-25] MEDS: NEPRO 1,000 ML BOTTLE GT SCH (12:55)
--- NOTE | 2019-07-25 12:55 | NUR ---
MS/RN NOTE PER DR FADY WEBER TO START GT FEEDING NEPRO. STARTED GT FEEDING NEPRO AT 20 ML/HR. WILL ASSESS AND INCREASE THE RATE (GOAL RATE IS 70ML/HR).
[2019-07-25] MEDS: INSULIN REGULAR, HUMAN 100 UNIT/ML 3 ML VIAL SQ PRN ×2 (13:09→19:10)
--- NOTE | 2019-07-25 14:56 | NUR ---
MS/RN NOTE GT FEEDING NEPRO RATE IS INCREASED TO 40 ML/HR. NO RESIDUAL NOTED. WILL CONTINUE TO MONITOR AND INCREASE THE RATE FOR THE GOAL RATE OF 70 ML/HR.
[2019-07-25 15:41] VITALS: BP 114/68
--- NOTE | 2019-07-25 15:54 | NUR ---
MS/RN NOTE PHARMACY IS MADE AWARE THAT FAMILY CANNOT PROVIDE ENTECAVIR 0.5 MG.
--- NOTE | 2019-07-25 16:13 | NUR ---
MS/RN NOTE PER DR WISE DISCONTINUED NEPRO 70ML/HR PRN AND RECEIVED NEW ORDER OF NEPRO 45ML/HR CONTINUOUS. NOTED AND CARRIED OUT.
[2019-07-25] MEDS: NEPRO 1,000 ML BOTTLE GT PRN (17:14)
--- NOTE | 2019-07-25 19:12 | NUR ---
MS/RN NOTE PATIENT ALERT AND ORIENTED TO SELF, NON-VERBAL. PATIENT IS ON TRACH COLLAR WITH 3L OF OXYGEN. NO MANIFESTATION OF DISTRESS NOTED. RAC MIDLINE PATENT AND SALINE LOCKED. LEFT HAND G 22 PATENT AND SALINE LOCKED. RIJ GIANNA CATH PRESENT. BAH CATH AND COLOSTOMY BAG IN PLACE. GT PRESENT AND NEPRO INFUSING AT 45ML/HR WITH NO RESIDUAL. ABDOMEN SOFT AND NON-DISTENDED. PATIENT IS ON BILATERAL SOFT WRIST RESTRAINS. ASSESSED AND NO SKIN BREAKDOWN, NO S/S POOR CIRCULATION NOTED. BED LOW AND LOCKED. SIDE RAILS UP X3. CALL LIGHT WITHIN REACH. WILL ENDORSE TO SUPERVISOR BENZENE REFINING.
[2019-07-25 19:30] VITALS: BP 120/72
--- NOTE | 2019-07-25 19:40 | NUR ---
MS RN NOTES PATIENT IN BED, ASLEEP, NONBERBAL. BREATHING EVEN AND UNLABORED ON TRACH COLLAR 3L. SHOWS NO SIGNS OF ACUTE RESPIRATORY DISTRESS, NO ACUTE PAIN. BILATERAL SOFT WRIST RESTRAINTS, NO S/S OF SKIN BREAKDOWN, NO S/S OF POOR CIRCULATION. BAH CATHETER IS CLEAN DRY AND INTACT FLOWING URINE. R IS GIANNA CATH IS PLACE. RAC MIDLINE AND L HAND 22G IS CLEAN DRY AND INTACT. SHOWS NO SIGNS OF INFILTRATION, NO REDNESS. GTUBE ON NEPRO 45ML/HR, NO RESIDUAL. SAFETY PRECAUTIONS IN PLACE. BED IN LOWEST POSITION, LOCKED, AND CALL LIGHT KEPT WITHIN REACH. WILL CONTINUE TO MONITOR.
[2019-07-25 20:00] VITALS: BP 120/75
[2019-07-26] VITALS (9 sets, daily range): BP systolic 106–127; BP diastolic 63–80
[2019-07-26] MEDS: BLOOD SUGAR DIAGNOSTIC 1 EACH STRIP IN SCH ×5 (00:40→23:27)
[2019-07-26] MEDS: INSULIN REGULAR, HUMAN 100 UNIT/ML 3 ML VIAL SQ PRN ×3 (00:43→12:41)
[2019-07-26] MEDS: INSULIN NPH, HUMAN ISOPHANE 100 UNIT/ML VIAL SQ SCH ×3 (06:01→22:04)
--- NOTE | 2019-07-26 06:49 | NUR ---
MS RN NOTES PATIENT IN BED, ASLEEP, NONVERBAL. BREATHING EVEN AND UNLABORED ON TRACH COLLAR 3L. SHOWS NO SIGNS OF ACUTE RESPIRATORY DISTRESS, NO ACUTE PAIN. BILATERAL SOFT WRIST RESTRAINTS, NO S/S OF SKIN BREAKDOWN, NO S/S OF POOR CIRCULATION. BAH CATHETER IS CLEAN DRY AND INTACT FLOWING URINE. R IS GIANNA CATH IS PLACE. RAC MIDLINE AND L HAND 22G IS CLEAN DRY AND INTACT. SHOWS NO SIGNS OF INFILTRATION, NO REDNESS. GTUBE ON NEPRO 45ML/HR, NO RESIDUAL. ALL DUE MEDICATIONS GIVEN. SAFETY PRECAUTIONS IN PLACE. BED IN LOWEST POSITION, LOCKED, AND CALL LIGHT KEPT WITHIN REACH. WILL ENDORSE TO ONCOMING NURSE.
--- NOTE | 2019-07-26 07:10 | NUR ---
MS RN OPENING NOTES NOTES PT IN BED, ASLEEP, EASILY AROUSED, NON VERBAL. RESPIRATION EVEN AND UNLABORED. PT ON 3L TRACH. NO SOB NOTED. PT ON BILATERAL SOFT WRIST RESTRAINTS, NO S/S OF SKIN BREAKDOWN, NO S/S OF POOR CIRCULATION. BAH CATHETER INTACT AND DRAINING TO GRAVITY CLEAR YELLOW URINE OUTPUT. R IJ GIANNA CATH IS PLACE. RAC MIDLINE AND L HAND 22G CLEAN, DRY AND INTACT. GTUBE ON NEPRO 45ML/HR, NO RESIDUAL NOTED. COLOSTOMY IN PLACE AND SKIN INTACT. SAFETY PRECAUTIONS IN PLACE. BED LOCKED LOWEST POSITION, CALL LIGHT WITHIN REACH, WILL CONTINUE TO MONITOR.
[2019-07-26] MEDS: FAMOTIDINE (20 MG) 20 MG TABLET GT SCH (08:22)
[2019-07-26] MEDS: LEVOTHYROXINE SODIUM 50 MCG TABLET GT SCH (08:22)
[2019-07-26 09:49] LABS: CALCIUM, SERUM 9.3 mg/dL (8.5-10.1); CREATININE 3.1 mg/dL (0.6-1.3); MAGNESIUM 3.1 mg/dL (1.8-2.4); PHOSPHORUS 3.6 mg/dL (2.5-4.9)
[2019-07-26] MEDS: AMLODIPINE BESYLATE 10 MG TABLET GT SCH (10:05)
[2019-07-26] MEDS: VITAMIN B COMP W-C 1 TAB TABLET GT SCH (10:06)
[2019-07-26] MEDS: ASCORBIC ACID 500 MG TABLET GT SCH (10:06)
[2019-07-26] MEDS: VORICONAZOLE 200 MG TABLET GT SCH ×2 (10:07→21:24)
[2019-07-26] MEDS: POLYVINYL ALCOHOL 15 ML BOTTLE EACHEYE SCH (10:07)
[2019-07-26] MEDS: URSODIOL 300 MG CAPSULE GT SCH ×3 (10:07→17:11)
[2019-07-26] MEDS: SEVELAMER CARBONATE 0.8 GM POWD.PACK GT SCH ×3 (10:07→17:10)
[2019-07-26] MEDS: cycloSPORINE SOLUTION 500 MG/5 ML UDC GT SCH (10:08)
[2019-07-26] MEDS: PROSOURCE / PROSTAT (PYXIS) 30 ML UDC GT SCH ×2 (10:09→17:11)
[2019-07-26] MEDS: MUPIROCIN OINT 2% 22 GM TUBE SCH ×2 (10:09→21:28)
[2019-07-26 10:33] LABS: BASOPHILS % (AUTO) 0.3 % (0.0-2.0); EOSINOPHILS % (AUTO) 6.7 % (0.0-6.0); LYMPHOCYTES # (AUTO) 0.8 /CMM (0.8-4.8); LYMPHOCYTES % (AUTO) 10.1 % (20.0-44.0); MEAN CORPUSCULAR HGB CONC 33 g/dl (31.0-36.0); MEAN CORPUSCULAR VOLUME 102 fL (80-96); MONOCYTES # (AUTO) 0.4 /CMM (0.1-1.30); MONOCYTES % (AUTO) 5.3 % (2.0-12.0); NEUTROPHILS # (AUTO) 5.8 /CMM (1.8-8.9); NEUTROPHILS % (AUTO) 77.6 % (43.0-81.0); PLATELET COUNT (AUTO) 168 /CMM (150-450); WHITE BLOOD COUNT (AUTO) 7.4 K/uL (4.3-11.0)
[2019-07-26 10:34] LABS: RED BLOOD CELL COUNT(AUTO) 1.93 MIL/uL (4.5-6.0)
[2019-07-26 10:37] LABS: HEMATOCRIT 20 % (39-51); HEMOGLOBIN 6.6 g/dL (13.5-17.5)
--- NOTE | 2019-07-26 13:02 | NUR ---
RECEIVED LAB RESULT FROM JORGE ELECTRIC DETECTOR OPERATOR. PT HGB 6.[address] WISE MADE AWARE. PER DR WISE, ADMINISTER ONE UNIT PRBC. NURSE PUT IN STAT ORDER. WILL CARRY ORDER.
--- NOTE | 2019-07-26 13:05 | NUR ---
PT SCHEDULED FOR PERMA CATH INSERTION AND BLOOD TRANSFUSION. CONSENT GOTTEN FROM BY PHONE AND WITNESSED BY ANOTHER NURSE KAZ CUNNINGHAM.
[2019-07-26 13:08] LABS: BAND % (MANUAL) 4 % (0.0-5.0); EOSINOPHILS % (MANUAL) 6 % (0-4); LYMPHOCYTES % (MANUAL) 11 % (16-48); MONOCYTES % (MANUAL) 4 % (0-11.0); NEUTROPHILS % (MANUAL) 75 (42-76)
--- NOTE | 2019-07-26 14:00 | NUR ---
PT HAD HD DONE TODAY. OUTPUT WAS 1LITER
--- NOTE | 2019-07-26 14:35 | NUR ---
ONE UNIT PRBC IS TRANSFUSING PER ORDER. V/S STABLE, BP 119/68, HR 109, RR 20, SPO2 94%, TEMP 97.6. PT IS AFEBRILE AT THIS TIME, WILL CONTINUE TO MONITOR FOR ADVERSE EFFECTS PRBC VERIFIED BY TWO NURSES. ADMINISTERED PER ORDER
--- NOTE | 2019-07-26 14:45 | NUR ---
ONE UNIT PRBC IS TRANSFUSING PER ORDER. V/S STABLE, BP 109/68, HR 107, RR 20, SPO2 96%, TEMP 98.2. PT IS AFEBRILE AT THIS TIME, NO ITCHES, HIVES OR PAIN. WILL CONTINUE TO MONITOR FOR ADVERSE EFFECTS
--- NOTE | 2019-07-26 15:00 | NUR ---
ONE UNIT PRBC IS TRANSFUSING PER ORDER. V/S STABLE, BP 127/80, HR 100, RR 20, SPO2 96%, TEMP 97.9. PT IS AFEBRILE AT THIS TIME, NO ITCHES, HIVES OR PAIN. WILL CONTINUE TO MONITOR FOR ADVERSE EFFECTS
--- NOTE | 2019-07-26 15:30 | NUR ---
ONE UNIT PRBC IS TRANSFUSING PER ORDER. V/S STABLE, BP 118/68, HR 102, RR 20, SPO2 94%, TEMP 98.0. PT IS AFEBRILE AT THIS TIME, NO ADVERSE REACTION OF TRANSFUSION NOTED, NO ITCHES, HIVES, NO SOB OR PAIN. WILL CONTINUE TO MONITOR FOR ADVERSE EFFECTS
--- NOTE | 2019-07-26 16:00 | NUR ---
BLOOD TRANSFUSION COMPLETED. V/S STABLE, BP 118/68, HR 104, RR 20, SPO2 96%, TEMP 97.8. PT IS AFEBRILE AT THIS TIME, NO ADVERSE REACTION OF TRANSFUSION NOTED, NO ITCHES, HIVES, NO SOB, NO PAIN. WILL CONTINUE TO MONITOR FOR ADVERSE EFFECTS
[2019-07-26] MEDS: NEPRO 1,000 ML BOTTLE GT PRN (18:26)
--- NOTE | 2019-07-26 18:56 | NUR ---
MS RN CLOSING NOTES PT IN BED, ASLEEP, AT THIS TIME, HOB ELEVATED. STABLE THROUGH OUT SHIFT, HD DONE TODAY, 1LITRES FLUID OUTPUT, BILATERAL SOFT WRIST RESTRAINTS, NO S/S OF SKIN BREAKDOWN, NO S/S OF POOR CIRCULATION. BAH CATHETER INTACT AND DRAINING TO GRAVITY LORRAINE CLOUDY URINE OUTPUT OF 300CC. ONE UNIT OF PRBC ADMINISTERED PER ORDER. ALL NEEDS PROVIDED FOR ANTICIPATED. PT KEPT CLEAN AND COMFORTABLE. R IJ GIANNA CATH IS PLACE. RAC MIDLINE AND L HAND 22G CLEAN, DRY AND INTACT. GTUBE ON NEPRO 45ML/HR, NO RESIDUAL NOTED. COLOSTOMY CLEAN, IN PLACE AND SKIN INTACT. SAFETY PRECAUTIONS IN PLACE. BED LOCKED LOWEST POSITION, CALL LIGHT WITHIN REACH, WILL ENDORSE TO NIGHT NURSE FOR ADAN
--- NOTE | 2019-07-26 19:38 | NUR ---
MS RN NOTES PATIENT IN BED, ASLEEP, NONVERBAL. BREATHING EVEN AND UNLABORED ON TRACH COLLAR 3L. SHOWS NO SIGNS OF ACUTE RESPIRATORY DISTRESS, NO ACUTE PAIN. BILATERAL SOFT WRIST RESTRAINTS, NO S/S OF SKIN BREAKDOWN, NO S/S OF POOR CIRCULATION. BAH CATHETER IS CLEAN DRY AND INTACT FLOWING URINE. R IS GIANNA CATH IS PLACE. RAC MIDLINE AND L HAND 22G IS CLEAN DRY AND INTACT. SHOWS NO SIGNS OF INFILTRATION, NO REDNESS. GTUBE ON NEPRO 45ML/HR, NO RESIDUALS. S/P 1 UNIT OF PRBC GIVEN AND HD TODAY 1 LITER OUT. SAFETY PRECAUTIONS IN PLACE. BED IN LOWEST POSITION, LOCKED, AND CALL LIGHT KEPT WITHIN REACH. WILL CONTINUE TO MONITOR.
[2019-07-27] MEDS: INSULIN NPH, HUMAN ISOPHANE 100 UNIT/ML VIAL SQ SCH ×3 (05:54→21:36)
[2019-07-27] MEDS: INSULIN REGULAR, HUMAN 100 UNIT/ML 3 ML VIAL SQ PRN ×2 (05:55→12:25)
[2019-07-27] MEDS: BLOOD SUGAR DIAGNOSTIC 1 EACH STRIP IN SCH ×3 (05:55→18:50)
--- NOTE | 2019-07-27 06:36 | NUR ---
MS RN NOTES PATIENT IN BED, ASLEEP, NONVERBAL. BREATHING EVEN AND UNLABORED ON TRACH COLLAR 3L. SHOWS NO SIGNS OF ACUTE RESPIRATORY DISTRESS, NO ACUTE PAIN. BILATERAL SOFT WRIST RESTRAINTS, NO S/S OF SKIN BREAKDOWN, NO S/S OF POOR CIRCULATION. BAH CATHETER IS CLEAN DRY AND INTACT FLOWING URINE. R IS GIANNA CATH IS PLACE. RAC MIDLINE AND L HAND 22G IS CLEAN DRY AND INTACT. SHOWS NO SIGNS OF INFILTRATION, NO REDNESS. GTUBE ON NEPRO 45ML/HR, NO RESIDUALS. ALL DUE MEDICATIONS GIVEN. SAFETY PRECAUTIONS IN PLACE. BED IN LOWEST POSITION, LOCKED, AND CALL LIGHT KEPT WITHIN REACH. WILL ENDORSE TO ONCOMING NURSE.
[2019-07-27] MEDS: IPRATROPIUM/ALBUTEROL INHALER IH SCH ×3 (07:00→18:50)
--- NOTE | 2019-07-27 07:07 | NUR ---
MS RN OPENING NOTES RECEIVED PT IN BED, ASLEEP, EASY TO AROUSE, NON VERBAL. BREATHING EVEN AND UNLABORED. PT ON 3L TRACH, PORTEX 7. PT ON BILATERAL SOFT WRIST RESTRAINTS, NO S/S OF SKIN BREAKDOWN, NO S/S OF POOR CIRCULATION. BAH CATHETER INTACT AND DRAINING TO GRAVITY CLOUDY LORRAINE URINE OUTPUT. R IJ GIANNA CATH IS PLACE. RAC MIDLINE AND L HAND G# 22, CLEAN, DRY AND INTACT. R FEMORAL MIDLINE CLEAN DRY AND INTACT. GTUBE ON NEPRO 45ML/HR, NO RESIDUAL NOTED. COLOSTOMY IN PLACE, CLEAN AND DRY.. SAFETY PRECAUTIONS IN PLACE. BED LOCKED LOWEST POSITION, CALL LIGHT WITHIN REACH, SIDE RAILS UP, WILL CONTINUE TO MONITOR.
[2019-07-27 07:24] LABS: BASOPHILS % (AUTO) 0.4 % (0.0-2.0); HEMATOCRIT 25 % (39-51); HEMOGLOBIN 8.9 g/dL (13.5-17.5); LYMPHOCYTES % (AUTO) 13.3 % (20.0-44.0); MEAN CORPUSCULAR HGB CONC 36 g/dl (31.0-36.0); MEAN CORPUSCULAR VOLUME 97 fL (80-96); MONOCYTES # (AUTO) 0.5 /CMM (0.1-1.30); MONOCYTES % (AUTO) 6.5 % (2.0-12.0); NEUTROPHILS # (AUTO) 5.5 /CMM (1.8-8.9); NEUTROPHILS % (AUTO) 71.8 % (43.0-81.0); PLATELET COUNT (AUTO) 169 /CMM (150-450); RED BLOOD CELL COUNT(AUTO) 2.57 MIL/uL (4.5-6.0); WHITE BLOOD COUNT (AUTO) 7.7 K/uL (4.3-11.0)
[2019-07-27 07:40] LABS: CALCIUM, SERUM 8.5 mg/dL (8.5-10.1); CREATININE 2.3 mg/dL (0.6-1.3); MAGNESIUM 2.4 mg/dL (1.8-2.4); PHOSPHORUS 2.9 mg/dL (2.5-4.9); POTASSIUM 3.7 mmol/L (3.5-5.1)
[2019-07-27] MEDS: FAMOTIDINE (20 MG) 20 MG TABLET GT SCH (07:52)
[2019-07-27] MEDS: LEVOTHYROXINE SODIUM 50 MCG TABLET GT SCH (07:53)
[2019-07-27 08:00] VITALS: BP 162/82
[2019-07-27] MEDS: ASCORBIC ACID 500 MG TABLET GT SCH (08:51)
[2019-07-27] MEDS: SEVELAMER CARBONATE 0.8 GM POWD.PACK GT SCH ×3 (08:51→16:43)
[2019-07-27] MEDS: AMLODIPINE BESYLATE 10 MG TABLET GT SCH (08:52)
[2019-07-27] MEDS: URSODIOL 300 MG CAPSULE GT SCH ×3 (08:52→16:43)
[2019-07-27] MEDS: cycloSPORINE SOLUTION 500 MG/5 ML UDC GT SCH (08:53)
[2019-07-27] MEDS: VITAMIN B COMP W-C 1 TAB TABLET GT SCH (08:53)
[2019-07-27] MEDS: POLYVINYL ALCOHOL 15 ML BOTTLE EACHEYE SCH (08:53)
[2019-07-27] MEDS: MUPIROCIN OINT 2% 22 GM TUBE SCH ×2 (08:55→21:22)
[2019-07-27] MEDS: PROSOURCE / PROSTAT (PYXIS) 30 ML UDC GT SCH ×2 (08:57→16:43)
--- NOTE | 2019-07-27 15:19 | NUR ---
PT SCHEDULED FOR PERMA CATH PLACEMENT ON 07/28/19. CONSENT RECEIVED FROM , SIGNED AND FILLED IN CHART
[2019-07-27 15:58] VITALS: BP 114/61
--- NOTE | 2019-07-27 17:30 | NUR ---
RT NOTE PATIENT FOUND ON HUMIDIFIED O2 AT 3L. TRACH TUBE IN PLACE, PATENT, AND SECURED WITH TRACH TIE. SX MOD THICK YELLOW SECRETIONS. AMBU BAG AND BACK UP TRACH BY THE BEDSIDE. NO DISTRESS AT THIS TIME. MONITOR THROUGHOUT SHIFT.
[2019-07-27] MEDS: NEPRO 1,000 ML BOTTLE GT PRN (18:58)
--- NOTE | 2019-07-27 19:09 | NUR ---
MS RN CLOSING NOTES PT IN BED, ASLEEP, AT THIS TIME, PT REMAINED STABLE THROUGH OUT SHIFT, BILATERAL SOFT WRIST RESTRAINTS, RADIAL PULSES PRESENT, NO S/S OF SKIN BREAKDOWN, NO S/S OF POOR CIRCULATION, CAPILLARY REFILL <3 SECONDS. BHA CATHETER INTACT AND DRAINING TO GRAVITY LORRAINE CLOUDY URINE OUTPUT. ALL NEEDS PROVIDED FOR ANTICIPATED. PT KEPT CLEAN, DRY AND COMFORTABLE. R IJ GIANNA CATH IS PLACE. RAC MIDLINE AND L HAND 22G CLEAN, DRY AND INTACT. R FEMORAL MIDLINE INTACT AND PATENT, GTUBE ON NEPRO 45ML/HR, NO RESIDUAL NOTED. COLOSTOMY CLEAN, IN PLACE AND SKIN INTACT. TRACH CARE AND SUCTION PERFORMED ORDERED. SAFETY PRECAUTIONS IN PLACE. BED LOCKED LOWEST POSITION, CALL LIGHT WITHIN REACH, SIDE RAILS UP, WILL ENDORSE TO NIGHT NURSE FOR ADAN
--- NOTE | 2019-07-27 19:30 | NUR ---
ms poonam initail notes received report from am nurse and seen pt in bed trach collar portex # 7 at 3 liters . he also on soft bilateral wrist restraint. breathing even and non-labored not in any acute distress noted. he also with booth to gravity and colostomy bag as well. skin warm and dry to touch. He also on G-tube feeding at 45ml./hr. no aspiration noted. kept him warm and comfortable at all times. will continue monitoring.
[2019-07-27 20:00] VITALS: BP 122/60
--- NOTE | 2019-07-27 21:35 | NUR ---
ms asp net c developer notes blood sugar checked 94 , novolin insulin 20 units given as ordered. No signs of hypo glycemia noted. will continue monitoring. kept him warm and comfortable at all times. will continue monitoring.
[2019-07-28] MEDS: IPRATROPIUM/ALBUTEROL INHALER IH SCH ×4 (00:39→18:00)
[2019-07-28] MEDS: BLOOD SUGAR DIAGNOSTIC 1 EACH STRIP IN SCH ×4 (00:39→18:00)
[2019-07-28] MEDS: INSULIN REGULAR, HUMAN 100 UNIT/ML 3 ML VIAL SQ PRN ×3 (00:46→18:00)
--- NOTE | 2019-07-28 00:49 | NUR ---
ms poonam notes blood sugar checked done 88, no insulin needed at this time. no signs of hypo glycemia noted. reposition pt for comfort. will continue monitoring.
[2019-07-28] MEDS: INSULIN NPH, HUMAN ISOPHANE 100 UNIT/ML VIAL SQ SCH ×2 (05:00→14:21)
--- NOTE | 2019-07-28 06:58 | NUR ---
ms chief arson division closing notes blood sugar checked done 71 , no insulin due at this time. no signs of hypo glycemia noted. Sponges bath rendered as well as his skin care treatment. all due meds given and all needs. Stable fermín the night . NO signs of any acute distress noted. G-tube clamped at this time. because he's NPO after midnight for Perma cath placement today. Rodriguez draining well, colostomy bag intact and empty but pt still had bowel movement fermín anal area. All his midline patent and intact as well as his heplock on his left hand. will endorse to am nurse for continuity of care.
[2019-07-28] MEDS ORDERED: ANESTHESIA TRAY IN PYXIS 1 EA TRAY MC ONE (07:14)
[2019-07-28] MEDS ORDERED: LIDOCAINE HCL/PF 1% 30 ML SDV ONE (07:15)
[2019-07-28] MEDS ORDERED: HEPARIN SODIUM, PORCINE 1,000 UNIT/ML VIAL ONE (07:15)
[2019-07-28] MEDS ORDERED: FENTANYL PF 100MCG/2ML AMPUL ONE (07:48)
--- NOTE | 2019-07-28 07:55 | NUR ---
m/s steffen house supervisor: notes taken to o.r. via bed accompanied by 2 staff at this time.
[2019-07-28 08:00] VITALS: BP 123/63
[2019-07-28 09:50] VITALS: BP 114/72
--- NOTE | 2019-07-28 09:50 | NUR ---
m/s nuclear licensing engineer: notes received pt from recovery room with dx: s/p right internal jugalar tunneled dialysis catheter insertion, permacath. vss. pt remains non-verbal. tracheostomy intact and secured at midline via t-piece. r.t. at bedside and trach care and ties changed. suctioned prn. hob elevated. re start g-tube feeding as ordered. pt for possible hd tx, will hold norvasc for now. will continue to monitor.
--- NOTE | 2019-07-28 10:00 | NUR ---
m/s mens locker room attendant: notes dr. carias (surgeon) ask me to call janet (daughter) and spoke to daughter and ask for the consent on removal of right femoral hd catheter, daughter provided the consent over the phone with me as a witness.
[2019-07-28] MEDS: LEVOTHYROXINE SODIUM 50 MCG TABLET GT SCH (10:36)
[2019-07-28] MEDS: VITAMIN B COMP W-C 1 TAB TABLET GT SCH (10:36)
[2019-07-28] MEDS: FAMOTIDINE (20 MG) 20 MG TABLET GT SCH (10:36)
[2019-07-28] MEDS: ASCORBIC ACID 500 MG TABLET GT SCH (10:36)
[2019-07-28] MEDS: SEVELAMER CARBONATE 0.8 GM POWD.PACK GT SCH ×3 (10:36→18:17)
[2019-07-28] MEDS: URSODIOL 300 MG CAPSULE GT SCH ×3 (10:36→18:17)
[2019-07-28] MEDS: PROSOURCE / PROSTAT (PYXIS) 30 ML UDC GT SCH ×2 (10:37→18:20)
[2019-07-28] MEDS: MUPIROCIN OINT 2% 22 GM TUBE SCH (10:38)
[2019-07-28] MEDS: AMLODIPINE BESYLATE 10 MG TABLET GT SCH (10:38)
[2019-07-28] MEDS: POLYVINYL ALCOHOL 15 ML BOTTLE EACHEYE SCH (10:39)
[2019-07-28] MEDS: cycloSPORINE SOLUTION 500 MG/5 ML UDC GT SCH (10:40)
[2019-07-28] MEDS ORDERED: NEPRO 1,000 ML BOTTLE GT PRN (11:30)
--- NOTE | 2019-07-28 11:30 | NUR ---
M/S ROOF BOLTING COAL MINER: NOTES JOAQUÍN (HAZMAT CDL A DRIVER, SURGEON) AT BEDSIDE AND REMOVED THE RIGHT FEMORAL HD CATH, CISCO. WELL. PRESSURE DRESSING APPLIED FOR 5 MINUTES BY HAZMAT CDL A DRIVER WITH ORDER TO SEND TIP FOR CULTURE. ORDER CARRIED OUT AND LAB CALLED TO DIRECTOR FIELD SERVICES SPECIMEN.
[2019-07-28 11:34] LABS: BASOPHILS % (AUTO) 0.1 % (0.0-2.0); EOSINOPHILS % (AUTO) 6.1 % (0.0-6.0); HEMATOCRIT 26 % (39-51); HEMOGLOBIN 8.8 g/dL (13.5-17.5); LYMPHOCYTES # (AUTO) 0.7 /CMM (0.8-4.8); MEAN CORPUSCULAR HGB CONC 34 g/dl (31.0-36.0); MEAN CORPUSCULAR VOLUME 98 fL (80-96); MONOCYTES # (AUTO) 0.3 /CMM (0.1-1.30); MONOCYTES % (AUTO) 3.8 % (2.0-12.0); NEUTROPHILS # (AUTO) 6.2 /CMM (1.8-8.9); PLATELET COUNT (AUTO) 148 /CMM (150-450); RED BLOOD CELL COUNT(AUTO) 2.66 MIL/uL (4.5-6.0); WHITE BLOOD COUNT (AUTO) 7.6 K/uL (4.3-11.0)
[2019-07-28 11:37] LABS: CALCIUM, SERUM 8.4 mg/dL (8.5-10.1); CREATININE 2.8 mg/dL (0.6-1.3); MAGNESIUM 2.5 mg/dL (1.8-2.4); PHOSPHORUS 3.8 mg/dL (2.5-4.9); POTASSIUM 3.7 mmol/L (3.5-5.1)
--- NOTE | 2019-07-28 12:00 | NUR ---
m/s import dispatcher: notes pt for discharge back to [facility] after hd. case management making arrangement.
--- NOTE | 2019-07-28 12:30 | NUR ---
m/s border measurer and cutter: notes s/p removal of right femoral dialysis cath. dressing remains in place with no active bleeding noted.
[2019-07-28] MEDS: ALBUMIN 25% 25 GM in PREMIX 1 EA IV PRN (14:25)
--- NOTE | 2019-07-28 14:30 | NUR ---
m/s metal furniture repairer: notes left message to janet (daughter) re: d'c back to [facility]. pt is on a will call due to hd tx. started on hd tx by ibrahima (rn) at this time. will continue to monitor.
--- NOTE | 2019-07-28 15:30 | NUR ---
m/s home health occupational therapist: notes report given to stacy (rn) at [facility] for continuity of care. informed Stacy that pt is going after hd tx.
[2019-07-28 16:00] VITALS: BP 120/82
--- NOTE | 2019-07-28 16:00 | NUR ---
m/s space control supervisor: notes kaylin (radha) notified and informed her that hd tx will be done at 1700 and need an ambulance to be here at 1800. per kaylin pickle pumper was scheduled at 1700 and will push it back at 1800 when i receive a confirmation from the ambulance as stated.
--- NOTE | 2019-07-28 16:30 | NUR ---
m/s lotus notes developer: notes hd in progress. no distress noted. will continue to monitor.
[2019-07-28 17:10] VITALS: BP 109/62
--- NOTE | 2019-07-28 17:10 | NUR ---
m/s web content coordinator: notes hd completed with zero uf per hd nurse. b/p 109/62, hr 99. no distress noted. pt for discharge to snf today. will continue to monitor.
--- NOTE | 2019-07-28 18:00 | NUR ---
m/s kelp gatherer: notes rf=[id number], insulin not given due to pt leaving soon. h/l to left hand removed with tip intact. g-tube feeding stopped and flush with 30ml of water. awaiting for ambulance to pick[employer] the pt. will remove midline when ambulance gets here.
--- NOTE | 2019-07-28 18:35 | NUR ---
m/s commissary worker: notes f/u made to [facility] ambulance [phone], spoke to fidencio (dispatch) and informed me that it was set up as a will call. informed him that it was originally set up a will call, but it was change to 1800. per fidencio the earliest he can do is [phone]. cn made aware.
--- NOTE | 2019-07-28 19:10 | NUR ---
m/s flying squad worker: notes ambulance here with 1 r.t., report given to one of the crew. midline to right upper arm removed, no bleeding noted. suctioned.
--- NOTE | 2019-07-28 19:23 | NUR ---
m/s plaster lather: discharged discharged pt to [facility] via [facility] in stable condition accompanied by 3 crew.
== END 2019-07-28 19:25 | DRG 466 ==
LOC: ER 14:36 → TELE 17:20 → TELE1 23:07 → TELE 07-21 18:52 → MED 07-24 09:39
PROVIDERS: ADMIT Internal Medicine; ATTEND Nurse Practitioner Acute Care
PROC: 05HM33Z Insertion of Infusion Device into Right Internal Jugular Vein, Percutaneous Approach (ICD-10-PCS; principal; 2019-07-21)
PROC: B543ZZA Ultrasonography of Right Jugular Veins, Guidance (ICD-10-PCS; principal; 2019-07-21)
PROC: 05HY33Z Insertion of Infusion Device into Upper Vein, Percutaneous Approach (ICD-10-PCS; 2019-07-22)
PROC: 5A1D70Z Performance of Urinary Filtration, Intermittent, Less than 6 Hours Per Day (ICD-10-PCS; 2019-07-22)
PROC: 30233N1 Transfusion of Nonautologous Red Blood Cells into Peripheral Vein, Percutaneous Approach (ICD-10-PCS; 2019-07-26)
PROC: 05HM33Z Insertion of Infusion Device into Right Internal Jugular Vein, Percutaneous Approach (ICD-10-PCS; 2019-07-28)
PROC: B543ZZA Ultrasonography of Right Jugular Veins, Guidance (ICD-10-PCS; 2019-07-28)
PROC: 06PY33Z Removal of Infusion Device from Lower Vein, Percutaneous Approach (ICD-10-PCS; 2019-07-28)
PROC: 0JHD3XZ Insertion of Tunneled Vascular Access Device into Right Upper Arm Subcutaneous Tissue and Fascia, Percutaneous Approach (ICD-10-PCS; 2019-07-28)
DX: T82.41XA Breakdown (mechanical) of vascular dialysis catheter, initial encounter (principal); I12.0 Hypertensive chronic kidney disease with stage 5 chronic kidney disease or end stage renal disease; G93.49 Other encephalopathy; J96.10 Chronic respiratory failure, unspecified whether with hypoxia or hypercapnia; E11.22 Type 2 diabetes mellitus with diabetic chronic kidney disease; Z93.0 Tracheostomy status; B19.10 Unspecified viral hepatitis B without hepatic coma; E87.5 Hyperkalemia; E11.51 Type 2 diabetes mellitus with diabetic peripheral angiopathy without gangrene; E11.65 Type 2 diabetes mellitus with hyperglycemia; N18.6 End stage renal disease; Z99.2 Dependence on renal dialysis; D63.8 Anemia in other chronic diseases classified elsewhere; Y84.1 Kidney dialysis as the cause of abnormal reaction of the patient, or of later complication, without mention of misadventure at the time of the procedure; Y92.129 Unspecified place in nursing home as the place of occurrence of the external cause; Z88.8 Allergy status to other drugs, medicaments and biological substances; D72.829 Elevated white blood cell count, unspecified; E03.9 Hypothyroidism, unspecified; Z86.19 Personal history of other infectious and parasitic diseases; K21.9 Gastro-esophageal reflux disease without esophagitis; Z79.4 Long term (current) use of insulin; M20.42 Other hammer toe(s) (acquired), left foot; M20.41 Other hammer toe(s) (acquired), right foot; Z79.899 Other long term (current) drug therapy; N25.81 Secondary hyperparathyroidism of renal origin; E11.621 Type 2 diabetes mellitus with foot ulcer; L97.529 Non-pressure chronic ulcer of other part of left foot with unspecified severity; E11.622 Type 2 diabetes mellitus with other skin ulcer; P54.8 Other specified neonatal hemorrhages; H11.89 Other specified disorders of conjunctiva
CPT/HCPCS: 31720; 36415; 71045-TC; 80048-TC; 80061-TC; 82728-TC; 82962-TC; 83540-TC; 83615-TC; 83735-TC; 83880; 84100-TC; 84439-TC; 84443-TC; 84484-TC; 85025-TC; 85610-TC; 85730-TC; 86140-TC; 86706; 86850-TC; 86921-TC; 87070-TC; 87081-TC; 87186-TC; 87340; 90935-TC; 93307-TC; 94640-TC; 94799-TC; A4216; A4623; A6403; A7526; C1750; G0378; J0690; J0885; J1642; J1644; J1815; J2704; J2997; J3010; J3490; J7050; J7502; P9016-BL; P9047

== ENCOUNTER 2020-02-01 16:06 | Inpatient (IN) | payer MEDICARE, OTHER ==
[~2020-02-01] VITALS: Ht 167.6 cm; Wt 54.9 kg
[~2020-02-01 16:06] MED LIST: ACET-868 GT; AMIN30LI27 GT; AMLO-213 GT; ASCO-495 GT; CARB15DR EACHEYE; CYCL25CA13 GT; CYCL25CA7 GT; DEXT15DR6 EACHEYE; ENTE0.5T4 GT; FAMO20TA8 GT; IPRA4AER IH; LEVO50TA8 GT; MELA5TAB GT; NPH,100V SQ; NUT.237L67 GT; SEVE0.8P3 GT; URSO300C12 GT; VITA1TAB56 GT; VORI200T GT
[2020-02-01] MEDS ORDERED: OCTREOTIDE 50 MCG/ML AMPUL SQ ONE (16:30)
[2020-02-01] MEDS ORDERED: ONDANSETRON HCL/PF 4 MG/2 ML VIAL IV ONE (16:30)
[2020-02-01] MEDS ORDERED: PANTOPRAZOLE 40 MG VIAL IV ONE (16:30)
[2020-02-01] MEDS ORDERED: ONDANSETRON HCL/PF 4 MG/2 ML VIAL ONE (16:34)
[2020-02-01] MEDS ORDERED: OCTREOTIDE 100 MCG/ML VIAL ONE (16:34)
[2020-02-01] MEDS ORDERED: PANTOPRAZOLE 40 MG VIAL ONE (16:34)
--- NOTE | 2020-02-01 16:36 | NUR ---
DOMINIC AGUILAR FROM US RENAL FOR COFFEE GROUND EMESIS X 1. PT NON VERBAL EYES OPEN. ABLE TO COMMUNICATE BY WRITING. RR EVEN & UNLABORED. PT SEEN & EVAL'D BY DR. MOJICA. PLACED ON DIESEL ENGINE ENGINEER, SR. WILL CONT TO MONITOR.
[2020-02-01] MEDS ORDERED: ENTE0.5T PO (16:40)
[2020-02-01] MEDS ORDERED: URSO300C7 GT (16:40)
[2020-02-01] MEDS ORDERED: FOLI0.8T23 GT (16:40)
[2020-02-01] MEDS ORDERED: LIDO85CR9 TP (16:40)
[2020-02-01] MEDS ORDERED: [UNRECOGNIZED DRUG - OTHER] GT (16:40)
[2020-02-01] MEDS ORDERED: MIDO5TAB4 GT (16:40)
--- NOTE | 2020-02-01 16:43 | NUR ---
PT REFUSED, BLOOD DRAWN & MEDS. DR. MOJICA AWARE & WILL CALL DR. BHAGAT.
--- NOTE | 2020-02-01 16:47 | NUR ---
CALLED DR. ARCENIO CORREIA. NO ANSWER. WILL CALL BACK.
--- NOTE | 2020-02-01 17:34 | NUR ---
Rex anderson in [facility] - 02/01/20 at 1736 by JDOY CALLED NURSING SUP FOR TELE BED
--- NOTE | 2020-02-01 17:36 | NUR ---
CALLED NURSING SUP FOR TELE BED
--- NOTE | 2020-02-01 18:10 | NUR ---
LAB ATTEMPTED TO DRAW BLOOD, PT REFUSED. DR. MOJICA AWARE, OK'D IT.
--- NOTE | 2020-02-01 19:14 | NUR ---
NURSING SUP GAVE BED 204-1.
--- NOTE | 2020-02-01 19:53 | NUR ---
REPORT GIVEN TO KAZ ANDREWS FOR ADAN.
--- NOTE | 2020-02-01 19:55 | NUR ---
REPORT RECEIVED FROM ER NURSE BYRON, PATIENT WILL BECOMING TO ROOM 204-2 TELE.
[2020-02-01 21:00] VITALS: BP 141/75
--- NOTE | 2020-02-01 21:00 | NUR ---
TELE/RN OPENING NOTES PATIENT TRANSFERRED FROM ER VIA [facility] WITH FOLDING MACHINE TENDER AND RN BYRON. PATIENT SUSTAINED NO INJURIES DURING TRANSPORT. PATIENT IS STABLE, NO SIGNS OF DISTRESS NOTED. BREATHING IS EVEN AND UNLABORED, NO SIGNS OF SOB OR RESPIRATORY DISTRESS NOTED. PATIENT HAVE TRACH IN PLACE, RECEIVING 6L OF OXYGEN STAT AT 100%. PATIENT HAS RIGHT SUBCLAVIAN CATH IN PLACE, NO SIGNS OF ACTIVE BLEEDING. PATIENT CAME IN TO ER FROM DIALYSIS CENTER, DID NOT FINISH DIALYSIS TREATMENT. PATIENT HAS PEG TUBE IN PLACE. PATIENT HAS LEFT WRIST IV ACCESS INTACT FLUSHING WELL #22G. PATIENT SKIN NOTED, LOWER EXTREMITIES SCABS, AND SACRAL REDNESS. PATIENT REFUSED FULL SKIN ASSESSMENT AND PICTURE AT THIS TIME. PATIENT REFUSED BLOOD DRAW AND CXR IN ER. SAFETY MEASURES ARE IN PLACE, BED IS LOCKED AND PLACED IN THE LOWEST POSITION, SIDE RAILS UP X 3, CALL LIGHT IS WITHIN REACH. WILL CONTINUE TO MONITOR PATIENT THROUGH OUT SHIFT.
--- NOTE | 2020-02-01 21:15 | NUR ---
TELE/RN NOTES PATIENT REFUSE LAB BLOOD DRAW. PATIENT WAS EXPLAINED THE RISK AND BENEFIT BY MULTIPLE NURSES. MULTIPLE NURSES ATTEMPTED TO EXPLAIN TO PATIENT THE BENEFIT OF LAB DRAW. PATIENT STILL REFUSING, BUSHING NURSES AWAY WITH ARM MOVEMENTS AND NODDING HEAD IS NO DIRECTION. PATIENT GETTING AGITATED AND YELLING. WILL CONTINUE TO MONITOR.
--- NOTE | 2020-02-01 21:16 | NUR ---
TELE/RN NOTES CALLED DOCTOR HERI FOR ADMITTING ORDERS FOR PATIENT. PATIENT PCP IS DR. RG. DR. LIRIANO HAS BEEN PAGED TO CALL BACK.
--- NOTE | 2020-02-01 21:50 | NUR ---
TELE/RN NOTES SECOND BLOOD DRAW ATTEMPTED. PATIENT STILL REFUSING TO HAVE BLOOD DRAWN. WOULD NOT LET CENTRAL OFFICE FRAME WIRER DRAW. PATIENT STILL BRUSHING AWAY NURSES AN MOVING ARMS AWAY. SHAKING HEAD IN NO DIRECTION. WILL CONTINUE TO MONITOR.
--- NOTE | 2020-02-01 22:00 | NUR ---
TELE/RN NOTES RECEIVED PHONE ORDERS FROM DR. LIRIANO. PHONE ORDERS READ BACK TO DOCTOR. ORDERS HAVE BEEN PLACED AND CARRIED OUT.
[2020-02-01] MEDS: IV D5/0.45 NACL 1,000 ML IV PRN (22:37)
--- NOTE | 2020-02-02 06:40 | NUR ---
TELE/RN CLOSING NOTES PATIENT IN BED SLEEPING EASY TO AROUSE. PATIENT IS ALERT AND ORIENTED X 2, NON VERBAL. PATIENT IS IN NO SIGNS OF SOB OR RESPIRATORY DISTRESS. BREATHING IS EVEN AND UNLABORED. TELE READING SR 73. PATIENT HAS OXYGEN AT 6L STAT 100%. PEG TUBE IN PLACE. RIGHT CHEST CATH FOR HD IN PLACE DRESSING INTACT. PATIENT REFUSED MORNING LAB DRAW, LAB WILL TRY AGAIN THIS MORNING. ALL PATIENTS NEEDS HAVE BEEN MET DURING SHIFT. SAFETY MEASURES ARE IN PLACE, BED IS LOCKED AND PLACED IN THE LOWEST POSITION, SIDE RAILS UP X 3, CALL LIGHT WITH WITHIN REACH. WILL ENDORSE CARE TO DAY SHIFT.
--- NOTE | 2020-02-02 07:30 | NUR ---
TELE/RN OPENING NOTES Received patient resting in bed, A&O x 2, nonverbal, communicated through pen and paper. Denies any pain and discomfort at this time. No n/v at this time.Breathing even and non-labored on 6L oxygen via trach. Trach in place with dressing noted, patient refusing to have trach dressing and ties changed at this time. Will attempt again later. No respiratory or cardiac distress noted. On tele monitor, reading SR 82. IV access noted on L wrist #22g, patent and intact, and running D5 1/2 NS @ 50 ml/hr. PEG in place. R chest cath in place. Sensation from all peripheral extremities intact. Will continue with current medical management. Addendum: 02/02/20 at 0756 by SARA MCKEON RN Bed locked to its lowest position, side rails x 2 up, call light in hand.
[2020-02-02] MEDS: PANTOPRAZOLE 40 MG VIAL IV SCH (08:09)
[2020-02-02] MEDS ORDERED: NEPRO VAN 237 ML CAN GT SCH (09:00)
[2020-02-02] MEDS ORDERED: ENTECAVIR 0.5 MG PO SCH (09:00)
[2020-02-02] MEDS ORDERED: ASCORBIC ACID 250 MG TABLET PO SCH (09:00)
[2020-02-02] MEDS: MIDODRINE HCL (5MG) 5 MG TABLET GT SCH (09:00)
[2020-02-02] MEDS ORDERED: ACETAMINOPHEN 325 MG TABLET PO PRN (09:00)
--- NOTE | 2020-02-02 09:00 | NUR ---
TELE/RN NOTE Patient refuses to have chest x-ray taken, explained the importance of test, but insists on refusal. RD will come back later to attempt to do chest x-ray.
[2020-02-02] MEDS ORDERED: DEXTROSE 50%-WATER 50 ML DISP.SYRIN IV PRN (09:30)
--- NOTE | 2020-02-02 09:59 | NUR ---
TELE/RN NOTE Spoke with charger operator at [facility], states patient has received pneumococcal vaccine at 2018, unsure of what month. Patient refused flu vaccine at SNF, asked patient directly if he wanted to have flu vaccine here in this hospital, still insists on refusal. Educated patient its risks and benefits. Will continue to monitor.
[2020-02-02] MEDS ORDERED: ACETAMINOPHEN 160 MG/5 ML PO PRN (10:00)
[2020-02-02] MEDS ORDERED: ACETAMINOPHEN 160 MG/5 ML GT PRN (10:01)
--- NOTE | 2020-02-02 10:09 | NUR ---
TELE/RN NOTE Patient refused lab draw and skin assessment (with wound care nurse). Educated risks and benefits, patient started yelling no.
--- NOTE | 2020-02-02 10:19 | NUR ---
WOUND CARE CONSULT: PT REFUSED SKIN ASSESSMENT. PT IS UNCOOPERATIVE AND THREW DOWN CLIPBOARD WHEN NURSING STAFF WROTE QUESTION DOWN FOR PT. WILL SEE PT PT CONDITION PERMITS. RECOMMENDATIONS MADE FOR SKIN PROTECTION. DISCUSSED WITH NURSING STAFF.
[2020-02-02] MEDS ORDERED: Z GUARD REMEDY 2 OZ OINT TP PRN (10:30)
--- NOTE | 2020-02-02 11:10 | NUR ---
SPECIAL EFFECTS SPECIALISTFIRST ASSISTANT MANAGER NOTES RECEIVED PT AND REPORT FROM KAZ RUIZ .PT AWAKE,APHASIC AND CAN COMMUNICATE THROUGH WRITING.PT REFUSED AM LABS BUT FINALLY AGREED.PT HAS TRACH SHILEY 6 WITH PEG TUBE AND RT CHEST HEMODIALYSIS CATHETER. ON BEDREST. NPO.WITH ONGOING IVF OF D51/2 NS AT 50 ML/HR INFUSING WELL. TO LT WRIST. TURNED EVERY TWO HRS. CALL LIGHT PLACED WITHIN REACH.
[2020-02-02] MEDS: URSODIOL 300 MG CAPSULE GT SCH ×3 (11:30→17:40)
[2020-02-02] MEDS: VORICONAZOLE 200 MG TABLET GT SCH ×2 (11:30→22:12)
[2020-02-02] MEDS: ASCORBIC ACID 500 MG TABLET GT SCH (11:30)
[2020-02-02] MEDS: BLOOD SUGAR DIAGNOSTIC 1 EACH STRIP IN SCH ×2 (11:37→17:39)
[2020-02-02] MEDS: Z GUARD REMEDY 2 OZ OINT TP SCH (11:37)
[2020-02-02] MEDS ORDERED: Medication Not On Formulary EA (Ipratropium/Albuterol Sulfate (Combivent Respimat 20-100 IH SCH (12:00)
--- NOTE | 2020-02-02 13:07 | NUR ---
PT REFUSED CXR PROCEDURE INSPITE OF EXPLAINING THE RISKS AND BENEFITS.
[2020-02-02] MEDS: INSULIN REGULAR, HUMAN 100 UNIT/ML 3 ML VIAL SQ PRN (13:56)
[2020-02-02] MEDS: INSULIN NPH, HUMAN ISOPHANE 100 UNIT/ML VIAL SQ SCH ×2 (14:06→22:19)
[2020-02-02 14:47] LABS: BASOPHILS % (AUTO) 0.2 % (0.0-2.0); CALCIUM, SERUM 8.7 mg/dL (8.5-10.1); CREATININE 2.9 mg/dL (0.6-1.3); EOSINOPHILS % (AUTO) 15.6 % (0.0-6.0); HEMATOCRIT 29 % (39-51); HEMOGLOBIN 9.4 g/dL (13.5-17.5); LYMPHOCYTES # (AUTO) 0.6 /CMM (0.8-4.8); LYMPHOCYTES % (AUTO) 14.8 % (20.0-44.0); MEAN CORPUSCULAR HGB CONC 32 g/dl (31.0-36.0); MEAN CORPUSCULAR VOLUME 100 fL (80-96); MONOCYTES # (AUTO) 0.2 /CMM (0.1-1.30); MONOCYTES % (AUTO) 6.4 % (2.0-12.0); NEUTROPHILS # (AUTO) 2.4 /CMM (1.8-8.9); PLATELET COUNT (AUTO) 127 /CMM (150-450); POTASSIUM 4.2 mmol/L (3.5-5.1); RED BLOOD CELL COUNT(AUTO) 2.92 MIL/uL (4.5-6.0); WHITE BLOOD COUNT (AUTO) 3.8 K/uL (4.3-11.0)
[2020-02-02] MEDS: NEPRO 1,000 ML BOTTLE GT SCH (15:13)
--- NOTE | 2020-02-02 15:59 | NUR ---
PT WANTED EYEDROPS FRO HIS EYE DRYNESS.NOTIFIED DR RG FOR EYEDROPS ORDERS.
[2020-02-02 16:00] VITALS: BP 111/71
[2020-02-02] MEDS ORDERED: POLYVINYL ALCOHOL 15 ML BOTTLE EACHEYE PRN (16:00)
--- NOTE | 2020-02-02 16:30 | NUR ---
TELE/RN NOTE Educated patient regarding procedure tomorrow. Obtained EGD, blood transfusion, and anesthesia consent from patient.
[2020-02-02] MEDS: IV D5/0.45 NACL 1,000 ML IV PRN (17:38)
--- NOTE | 2020-02-02 18:58 | NUR ---
CALLED PT'S DAUGHTER, LULA AND MADE AWARE OF PT'S EGD PROCEDURE FOR TOMORROW.LULA STATED THAT THEY HAVE TO WAIT FOR THEIR BROTHER'S DECISION AND CONSENT.LULA STATED THAT THEY WILL CALL US BACK.WILL ENDORSE TO NIGHT NURSE TO FOLLOW UP.
[2020-02-02 20:00] VITALS: BP 126/59
--- NOTE | 2020-02-02 20:04 | NUR ---
ALLOY WEIGHER NOTES RECEIVED PATIENT, NO SIGNS OF ACUTE RESPIRATORY DISTRESS OR CARDIAC DISTRESS NOTED. TELE MONITOR READS SINUS 70s TO 80s. PT AWAKE,APHASIC AND CAN COMMUNICATE THROUGH WRITING.PT HAS TRACH SHILEY 6 WITH PEG TUBE, NEPRO AT 70 ML/HR FEEDING TOLERATING WELL. AND RT CHEST HEMODIALYSIS CATHETER. ON BEDREST. NPO.WITH ONGOING IVF OF D51/2 NS AT 50 ML/HR INFUSING WELL. TO LT WRIST.SAFETY MEASURES INPLACE, ASPIRATION PRECAUTION EMPHASIZED. BED IN LOW LOCKED POSITION, CALL LIGHT PLACED WITHIN EASY REACH. ALL NEEDS ANTICIPATED, WILL CONTINUE TO MONITOR ACCORDINGLY.
[2020-02-02] MEDS: ALBUTEROL FS 2.5 MG/0.5 ML VIAL.NEB NEB SCH (20:13)
[2020-02-02] MEDS: IPRATROPIUM NEB FS 0.5 MG/2.5 ML AMPUL.NEB NEB SCH (20:13)
[2020-02-02 20:44] VITALS: BP 126/59
--- NOTE | 2020-02-02 21:50 | NUR ---
RN NOTES CALLED AND LEFT MESSAGE TO THIS PHONE NUMBERS WALLY NAM [phone] AND [phone] TO OBTAIN PHONE CONSENT FOR EGD. TO RESPONSE OR CALL BACK. WILL CALL AGAIN TO FOLLOW UP.
[2020-02-03] VITALS: BP 141/80
[2020-02-03] MEDS: ALBUTEROL FS 2.5 MG/0.5 ML VIAL.NEB NEB SCH ×4 (00:30→20:04)
[2020-02-03] MEDS: IPRATROPIUM NEB FS 0.5 MG/2.5 ML AMPUL.NEB NEB SCH ×4 (00:30→20:04)
[2020-02-03] MEDS: BLOOD SUGAR DIAGNOSTIC 1 EACH STRIP IN SCH ×4 (01:08→18:04)
[2020-02-03 04:00] VITALS: BP 136/79
[2020-02-03] MEDS: INSULIN NPH, HUMAN ISOPHANE 100 UNIT/ML VIAL SQ SCH ×3 (05:00→22:01)
--- NOTE | 2020-02-03 06:26 | NUR ---
DENTAL CLAIMS PROCESSOR NOTES RECEIVED PATIENT IN BED,AWAKE ALERT AND ORIENTED X 3, [place] CITIZEN SPEAKING. ON NASAL CANNULA, WITH NO SIGNS OF ACUTE RESPIRATORY DISTRESS, EVEN AND UNLABORED. , AND NO SOB NOTED. TELE MONITOR READS, SINUS RHYTHM, 87. IV ACCESS INTACT AND PATENT, INFUSING NORMAL SALINE AT 100ml/hr. NO SIGNS OF DISCOMFORT OR PAIN AT THIS TIME. SAFETY PRECAUTIONS IMPLEMENTED WITH BED LOCKED, BED IN THE LOWEST POSITION, BILATERAL SIDE RAILS UP, BED ALARM ON AND CALL LIGHT WITHIN EASY REACH OF PATIENT. ALL NEEDS ANTICIPATED.ON NPO, HELD GTUBE FEEDING SINCE MIDNIGHT FOR EGD SCHEDULE TODAY AT 10:40 AM. WILL ENDORSE TO AM NURSE FOR CONTINUITY OF CARE. Addendum: 02/03/20 at 0629 by JAVON JUAREZ RN DENTAL CLAIMS PROCESSOR NOTES RECEIVED PATIENT IN BED,AWAKE ALERT AND ORIENTED X 3, [place] CITIZEN SPEAKING. ON NASAL CANNULA, WITH NO SIGNS OF ACUTE RESPIRATORY DISTRESS, EVEN AND UNLABORED. , AND NO SOB NOTED. TELE MONITOR READS, SINUS RHYTHM, 87. IV ACCESS INTACT AND PATENT, INFUSING D5 1/2 NS AT 50ml/hr. NO SIGNS OF DISCOMFORT OR PAIN AT THIS TIME. SAFETY PRECAUTIONS IMPLEMENTED WITH BED LOCKED, BED IN THE LOWEST POSITION, BILATERAL SIDE RAILS UP, BED ALARM ON AND CALL LIGHT WITHIN EASY REACH OF PATIENT. ALL NEEDS ANTICIPATED.ON NPO, HELD GTUBE FEEDING SINCE MIDNIGHT FOR EGD SCHEDULE TODAY AT 10:40 AM. WILL ENDORSE TO AM NURSE FOR CONTINUITY OF CARE.
--- NOTE | 2020-02-03 06:45 | NUR ---
RN NOTES MARVA N NOT GIVEN. PATIENT ON NPO, HELD GT FEEDING AT 12 MIDNIGHT. WILL HAVE EGD TODAY AT 10:40AM WILL INFORM AM NURSE.
--- NOTE | 2020-02-03 07:14 | NUR ---
RN NOTES CALLED AND LEFT MESSAGE TO THIS PHONE NUMBERS WALLY NAM [phone] AND [phone] TO OBTAIN PHONE CONSENT FOR EGD. TO RESPONSE OR CALL BACK. WILL INFORM AM NURSE TO FOLLOW UP.
[2020-02-03] MEDS: LEVOTHYROXINE SODIUM 50 MCG TABLET GT SCH (07:30)
[2020-02-03] MEDS: FAMOTIDINE (20 MG) 20 MG TABLET GT SCH (07:30)
--- NOTE | 2020-02-03 08:00 | NUR ---
GAME AUTHOR AM NOTES RECEIVED PT PT AWAKE,APHASIC AND CAN COMMUNICATE THROUGH WRITING. PT HAS TRACH SHILEY 6 WITH PEG TUBE -WITH GT FEEDING HELD DUE TO EGD PROCEDURE WITH ALL CONSENTS OBTAINED AND CHECKLIST DONE. RT CHEST HEMODIALYSIS CATHETER. ON BEDREST. NPO.AM CARE DONE. DENIES PAIN AND DISTRESS. WITH ONGOING IVF OF D51/2 NS AT 50 ML/HR INFUSING WELL. TO LT WRIST. TURNED EVERY TWO HRS. CALL LIGHT PLACED WITHIN REACH.
--- NOTE | 2020-02-03 08:05 | NUR ---
ON T PIECE WITH 02 AT 6L/MIN WITH TRACH JOSE #6.RT CHEST HEMODIALYSIS CATHETER INTACT.WITH DRY AND CLEAN DRESSING.
[2020-02-03 08:15] VITALS: BP 134/69
[2020-02-03] MEDS: URSODIOL 300 MG CAPSULE GT SCH ×3 (08:27→16:28)
[2020-02-03] MEDS: VORICONAZOLE 200 MG TABLET GT SCH ×2 (08:28→22:05)
[2020-02-03] MEDS: MIDODRINE HCL (5MG) 5 MG TABLET GT SCH (08:28)
[2020-02-03] MEDS: ASCORBIC ACID 500 MG TABLET GT SCH (08:46)
[2020-02-03] MEDS: PANTOPRAZOLE 40 MG VIAL IV SCH (08:46)
[2020-02-03] MEDS: Z GUARD REMEDY 2 OZ OINT TP SCH (08:47)
--- NOTE | 2020-02-03 09:50 | NUR ---
PT WAS BROUGHT TO O.R. FOR EGD PROCEDURE BY DR CAVAZOS WITH STABLE V/S,CONSENTS SIGNED AND CHECKLIST DONE.
--- NOTE | 2020-02-03 11:42 | NUR ---
PT CAME BACK FROM O.R. S/P EGD WITH BIOPSY WITH GASTRIC EROSIONS WITHOUT ACTIVE BLEEDING.GASTRIC BIOPSY DONE. BP 126/73 HR 85 RR 18 T 97.5 PA 0/10 PT AWAKE DENIES PAIN OR DISTRESS. RESUMED PT'S IVF OF D51/2 NS AT 50 ML/HR TO LT WRIST AND GT FEEDING OF NEPRO AT 70 ML/HR .PT HAS LONG DIRTY NAILS WHICH HE AGREED TO BE TRIMMED. SHAVED PT AND TRIMMED HIS LONG DIRTY NAILS-KEPT CLEAN AND DRY. PT DID THUMBS UP FOR A JOB WELL DONE AND WAS PLEASED WITH IT.CALL LIGHT PLACED WITHIN REACH.WILL MONITOR
[2020-02-03 16:00] VITALS: BP 135/70
[2020-02-03] MEDS: IV D5/0.45 NACL 1,000 ML IV PRN (16:29)
--- NOTE | 2020-02-03 16:32 | NUR ---
PT KEEPS SCRATCHING HIS ARMS AND LEGS DUE TO DRYNESS/ITCHINESS. APPLIED LOTION AND PT WANTED HYDROCORTISONE AND BENADRYL CREAM.NOTIFIED DR HOSKINS WITH ORDERS MADE AND CARRIED OUT.
[2020-02-03] MEDS ORDERED: diphenhydrAMINE HCL/ZINC ACET CREAM 28.3 GM TUBE TP PRN (17:00)
[2020-02-03] MEDS: NEPRO 1,000 ML BOTTLE GT SCH (17:16)
[2020-02-03] MEDS: INSULIN REGULAR, HUMAN 100 UNIT/ML 3 ML VIAL SQ PRN (17:21)
[2020-02-03] MEDS: HYDROCORTISONE 2.5% CREAM 28.4 GM TUBE TP SCH (18:29)
--- NOTE | 2020-02-03 18:45 | NUR ---
SUPERVISOR POULTRY PROCESSING CLOSING NOTES PATIENT WATCHING TV WITH T PIECE AT 6 L WITH NO SIGNS OF ACUTE RESPIRATORY DISTRESS OR CARDIAC DISTRESS NOTED.PT AWAKE,APHASIC AND CAN COMMUNICATE THROUGH WRITING.PT HAS TRACH SHILEY 6 WITH PEG TUBE, NEPRO AT 70 ML/HR FEEDING TOLERATING WELL. AND RT CHEST HEMODIALYSIS CATHETER. ON BEDREST. NPO.WITH ONGOING IVF OF D51/2 NS AT 50 ML/HR INFUSING WELL. TO LT WRIST.SAFETY MEASURES IN PLACE, ASPIRATION PRECAUTION EMPHASIZED. HOB ELEVATED. BED IN LOW LOCKED POSITION, CALL LIGHT PLACED WITHIN EASY REACH. NEEDS ANTICIPATED AND ATTENDED, WILL CONTINUE TO MONITOR ACCORDINGLY.
[2020-02-03 20:00] VITALS: BP 134/72
--- NOTE | 2020-02-03 22:16 | NUR ---
MS/TELE/RN DURING INITIAL ASSESSMENT AT 1930, PATIENT WAS IN BED AWAKE, ALERT, ORIENTED, COMFORTABLE, NO C/O NO DISTRESS NOTED, HOB ELEVATED, GTUBE FEEDING NEPRO INFUSING AT 70 MLS/HR, NO RESIDUAL NOTED, TRACH CONNECTED TO WALL OXYGEN WITH HUMIDIFIER, CALL LIGHT IN REACH, NEEDS ATTENDED, WILL MONITOR.
--- NOTE | 2020-02-03 23:23 | NUR ---
MS/TELE/RN ENDORSED TO NEXT RN FOR CONTINUITY OF CARE.
--- NOTE | 2020-02-03 23:26 | NUR ---
RECEIVED REPORTS FROM KAZ ST FOR ADAN. CHECKED PATIENT, PATIENT IS CALM AND COMFORTABLE. NO S/S OF DISTRESS NOTED. NO COMPLAIN OF PAIN. HOB ELEVATED AT ALL TIMES. BED ALARM ON. BED IN LOWEST AND LOCKED POSITION.
[2020-02-04] MEDS: BLOOD SUGAR DIAGNOSTIC 1 EACH STRIP IN SCH ×4 (00:27→17:19)
[2020-02-04] MEDS: INSULIN REGULAR, HUMAN 100 UNIT/ML 3 ML VIAL SQ PRN ×2 (00:35→06:07)
--- NOTE | 2020-02-04 00:45 | NUR ---
GT RESIDUAL CHECKED=20 ML.
[2020-02-04] MEDS: ALBUTEROL FS 2.5 MG/0.5 ML VIAL.NEB NEB SCH ×4 (00:56→20:00)
[2020-02-04] MEDS: IPRATROPIUM NEB FS 0.5 MG/2.5 ML AMPUL.NEB NEB SCH ×4 (00:56→19:59)
[2020-02-04] MEDS: INSULIN NPH, HUMAN ISOPHANE 100 UNIT/ML VIAL SQ SCH ×3 (05:56→21:14)
--- NOTE | 2020-02-04 06:40 | NUR ---
MS RN CLOSING NOTES: PATIENT IN BED, AWAKE, A/O X3. NO S/S OF DISTRESS NOTED. NO COMPLAIN OF PAIN. HOB ELEVATED AT ALL TIMES. CALL LIGHT WITHIN REACH. BED ALARM ON. BED IN LOWEST AND LOCKED POSITION. HAD BM EARLY TODAY. TURNED AND REPOSITIONED. HEELS OFFLOADED. WITH GT INTACT, DRESSING INTACT,CLEAN AND DRY.
[2020-02-04 08:00] VITALS: BP 143/71
--- NOTE | 2020-02-04 08:00 | NUR ---
Patient refused am labs second time. Educated and benefits provided ; patient still refusing
[2020-02-04] MEDS: LEVOTHYROXINE SODIUM 50 MCG TABLET GT SCH (08:47)
[2020-02-04] MEDS: MIDODRINE HCL (5MG) 5 MG TABLET GT SCH (08:47)
[2020-02-04] MEDS: ASCORBIC ACID 500 MG TABLET GT SCH (08:47)
[2020-02-04] MEDS: URSODIOL 300 MG CAPSULE GT SCH ×3 (08:47→16:45)
[2020-02-04] MEDS: PANTOPRAZOLE 40 MG/PACK PACK GT SCH (08:49)
[2020-02-04] MEDS: VORICONAZOLE 200 MG TABLET GT SCH ×2 (08:52→20:59)
[2020-02-04] MEDS: Z GUARD REMEDY 2 OZ OINT TP SCH (08:52)
[2020-02-04] MEDS: FAMOTIDINE (20 MG) 20 MG TABLET GT SCH (08:52)
[2020-02-04] MEDS: HYDROCORTISONE 2.5% CREAM 28.4 GM TUBE TP SCH ×2 (08:53→16:45)
[2020-02-04] MEDS ORDERED: LEVOTHYROXINE SODIUM 75 MCG TABLET PO SCH (09:00)
--- NOTE | 2020-02-04 10:00 | NUR ---
Stopped tube feeding as ordered. Patient on Nepro rate 70ml/hr x 16hr. Will continue at 1800 pm .
[2020-02-04 12:00] LABS: ALANINE AMINOTRANSFERASE 13 U/L (12-78); ALBUMIN 2.7 g/dL (3.4-5.0); ALKALINE PHOSPHATASE 174 U/L (46-116); ASPARTATE AMINOTRANSFERASE 16 U/L (15-37); BILIRUBIN,TOTAL 0.3 mg/dL (0.2-1.0); CALCIUM, SERUM 8.4 mg/dL (8.5-10.1); CARBON DIOXIDE 29 mmol/L (21-32); CHLORIDE 102 mmol/L (98-107); CREATININE 1.8 mg/dL (0.6-1.3); GLUCOSE 100 mg/dL (74-106); IRON, SERUM 36 ug/dl (50-175); MAGNESIUM 2.1 mg/dL (1.8-2.4); POTASSIUM 3.5 mmol/L (3.5-5.1); SODIUM SERUM 131 mmol/L (136-145); TOTAL IRON BINDING CAPACITY 138 ug/dl (250-450); TOTAL PROTEIN, SERUM 7.6 g/dL (6.4-8.2); UREA NITROGEN, BLOOD 33 mg/dL (7-18)
[2020-02-04 12:11] LABS: FERRITIN 916 ng/mL (8-388)
--- NOTE | 2020-02-04 12:30 | NUR ---
Bedside HD finished with output 1000 ml. Patient is stable , with no distress noted.
[2020-02-04 12:33] LABS: THYROID STIMULATING HORMONE 7.076 uIU/mL (0.358-3.74)
--- NOTE | 2020-02-04 13:00 | NUR ---
Patient refused NOvolin N administration scheduled fpor 1300pm . Education provided ; pt still refusing
[2020-02-04 13:39] LABS: BASOPHILS % (AUTO) 0.2 % (0.0-2.0); EOSINOPHILS % (AUTO) 11.1 % (0.0-6.0); HEMATOCRIT 24 % (39-51); HEMOGLOBIN 7.8 g/dL (13.5-17.5); LYMPHOCYTES # (AUTO) 0.6 /CMM (0.8-4.8); LYMPHOCYTES % (AUTO) 19.1 % (20.0-44.0); MEAN CORPUSCULAR HGB CONC 33 g/dl (31.0-36.0); MEAN CORPUSCULAR VOLUME 100 fL (80-96); MONOCYTES # (AUTO) 0.2 /CMM (0.1-1.30); MONOCYTES % (AUTO) 7.3 % (2.0-12.0); NEUTROPHILS % (AUTO) 62.3 % (43.0-81.0); PLATELET COUNT (AUTO) 104 /CMM (150-450); RED BLOOD CELL COUNT(AUTO) 2.39 MIL/uL (4.5-6.0); WHITE BLOOD COUNT (AUTO) 3.3 K/uL (4.3-11.0)
[2020-02-04] MEDS: IV D5/0.45 NACL 1,000 ML IV PRN (15:13)
[2020-02-04] MEDS ORDERED: NEUTRA PHOS 1 POWD.PACKET GT ONE (15:30)
[2020-02-04 15:56] VITALS: BP 123/63
[2020-02-04] MEDS: NEPRO 1,000 ML BOTTLE GT SCH (16:44)
--- NOTE | 2020-02-04 18:15 | NUR ---
Patient noted with IV line leaking. IV line removed; no edema, no redness noted.
--- NOTE | 2020-02-04 18:24 | NUR ---
Patient remains stable , no distress noted. With VS at baseline. G-tube feeding on at rate 70ml/hr. NO residual , patient tolerated well. Attempted to insert a new IV line with no success. HD cath dressing intact and patent. All needs attended. Patient able to communicate by writing notes.HOB elevated at all times. SAfety precautions in place, call light within reach. Will endorse to next shift for ADAN
--- NOTE | 2020-02-04 19:27 | NUR ---
MS RN OPENING NOTES PATIENT SLEEPING IN BED, AWAKENS TO TOUCH. A/OX2-3, NONVERBAL, HARD OF HEARING AND SIGHT; COMMUNICATES BY WRITING. TRACH PRESENT WITH 6L O2; NO S/S OF ACUTE RESPIRATORY DISTRESS; BREATHING IS EVEN AND UNLABORED. NO S/S OF PAIN NOTED. NO IV PRESENT AT THIS TIME; PER DAY SHIFT RN, PREVIOUS IV LINE ON RIGHT WRIST LEAKING AND REMOVED;UNABLE TO INSERT NEW IV LINE. GTUBE FEEDING WITH NEPRO RUNNING AT 70ML/HR. PEG TUBE PRESENT, INTACT & PATENT. RIGHT CHEST HD CATH PRESENT, DRESSING DRY AND INTACT. SAFETY MEASURES IN PLACE AND PATIENT'S NEEDS MET. BED LOCKED, ALARM ON, HOB ELEVATED, SIDE RAILS X2, CALL LIGHT WITHIN REACH. WILL CONTINUE TO MONITOR.
[2020-02-04 20:00] VITALS: BP 107/67
[2020-02-05] MEDS: BLOOD SUGAR DIAGNOSTIC 1 EACH STRIP IN SCH ×4 (00:31→17:28)
[2020-02-05] MEDS: INSULIN REGULAR, HUMAN 100 UNIT/ML 3 ML VIAL SQ PRN ×3 (00:32→11:53)
[2020-02-05] MEDS: IPRATROPIUM NEB FS 0.5 MG/2.5 ML AMPUL.NEB NEB SCH ×4 (02:24→19:41)
[2020-02-05] MEDS: ALBUTEROL FS 2.5 MG/0.5 ML VIAL.NEB NEB SCH ×4 (02:25→19:41)
--- NOTE | 2020-02-05 05:26 | NUR ---
MS RN NOTES MULTIPLE ATTEMPTS MADE TO START NEW IV, HOWEVER UNSUCCESSFUL. NOTIFIED CREASING AND CUTTING PRESS FEEDER GENERAL CLEANER THAT PATIENT IS HARD STICK, PER JIM OK TO INSERT MIDLINE. NURSING CORPORATE TRAVEL COUNSELOR MADE AWARE.
[2020-02-05] MEDS: INSULIN NPH, HUMAN ISOPHANE 100 UNIT/ML VIAL SQ SCH ×3 (05:33→21:40)
[2020-02-05] MEDS: NEPRO 1,000 ML BOTTLE GT SCH (05:37)
--- NOTE | 2020-02-05 06:32 | NUR ---
MS RN NOTES PATIENT REFUSED BLOOD DRAW FOR LAB. COLLAR SHAPER OPERATOR TO TRY AGAIN LATER.
--- NOTE | 2020-02-05 06:46 | NUR ---
MS RN CLOSING NOTES PATIENT SLEEPING IN BED, AWAKENS BY TOUCH. A/OX3. NO S/S OF ACUTE RESPIRATORY DISTRESS; PATIENT RECEIVING 10L O2 VIA TRACH T-PIECE. NO S/S OF PAIN NOTED. GTUBE FEEDING RUNNING WITH NEPRO AT 70 ML/HR. AWAITING MIDLINE INSERTION IN AM. SAFETY MEASURES IN PLACE AND PATIENT'S NEEDS MET. WILL ENDORSE TO DAY SHIFT RN PLAN OF CARE.
[2020-02-05] MEDS: FAMOTIDINE (20 MG) 20 MG TABLET GT SCH (07:30)
--- NOTE | 2020-02-05 07:46 | NUR ---
MS RN OPENING NOTES BEDSIDE ENDORSEMENT DONE. PATIENT SLEEPING IN BED, AWAKENS BY TOUCH. A/OX3, ABLE TO MAKE NEEDS KNOWN THROUGH NON-VERBAL GESTURES. COMMUNICATES USING WRITTEN MESSAGE BOARD. PATIENT RECEIVING 10L O2 VIA TRACH T-PIECE. NO S/S OF PAIN NOTED. GTUBE FEEDING RUNNING WITH NEPRO AT 70 ML/HR. AWAITING MIDLINE INSERTION IN AM PER APPLE PEELER OPERATOR RN. SAFETY MEASURES IN PLACE: BED LOCKED AND ON LOWEST POSITION, SR UP X2, CALL LIGHT W/IN REACH. WILL CONTINUE TO MONITOR.
[2020-02-05 08:00] VITALS: BP 124/70
[2020-02-05] MEDS: ASCORBIC ACID 500 MG TABLET GT SCH (08:56)
[2020-02-05] MEDS: MIDODRINE HCL (5MG) 5 MG TABLET GT SCH (08:56)
[2020-02-05] MEDS: PANTOPRAZOLE 40 MG/PACK PACK GT SCH (08:56)
[2020-02-05] MEDS: URSODIOL 300 MG CAPSULE GT SCH ×3 (08:57→16:55)
[2020-02-05] MEDS: Z GUARD REMEDY 2 OZ OINT TP SCH (08:57)
[2020-02-05] MEDS: LEVOTHYROXINE SODIUM 25 MCG TABLET GT SCH (08:58)
[2020-02-05] MEDS ORDERED: PANT40SU2 GT (09:04)
[2020-02-05] MEDS: HYDROCORTISONE 2.5% CREAM 28.4 GM TUBE TP SCH ×2 (09:20→16:55)
[2020-02-05] MEDS: VORICONAZOLE 200 MG TABLET GT SCH ×2 (09:22→21:30)
--- NOTE | 2020-02-05 09:47 | NUR ---
WOUND CARE CONSULT: PT NOTED WITH TRACH AND PIGMENTATION DISCOLORATION TO BUTTOCKS, PRESENT ON ADMISSION. PT IS ABLE TO TURN AND REPOSITION IN BED WITH ASSISTANCE. WILL SEE PRN. Addendum: 02/05/20 at 0948 by ZELALEM PINTO WNDNU Amended: Links added.
--- NOTE | 2020-02-05 14:35 | NUR ---
RN NOTES TRIED TO CALL [facility] FOR PATIENT REPORT BUT NO RESPONSE; KEPT ON HOLD FOR 10 MINUTES. WILL CALL AGAIN.
--- NOTE | 2020-02-05 14:55 | NUR ---
RN NOTES PATIENT REPORT GIVEN TO KAZ ELLIOTT BRACELET AND BROOCH MAKER AT [facility].
[2020-02-05 16:00] VITALS: BP 134/66
--- NOTE | 2020-02-05 16:16 | NUR ---
RN NOTES KARYN LOYD DISPATCHER, CALLED AND INFORMED UNIT THAT AMBULANCE IS RUNNING LATE W/ NEW ETA OF [phone].
--- NOTE | 2020-02-05 18:56 | NUR ---
RN NOTES 3 RESOURCE ANALYST ARRIVED TO PICKUP PATIENT, BUT PATIENT IS REFUSING TO GO BACK TO [facility]. PER PATIENT'S WRITING, HE DOES NOT WANT TO GO BACK TODAY, AND WANTS TO GO BACK TOMORROW MORNING. CHARGE NURSE MADE AWARE OF PATIENT'S REFUSAL TO GO.
--- NOTE | 2020-02-05 19:50 | NUR ---
MS RN NOTE: PATIENT RESTING IN BED, NO ACUTE DISTRESS NOTED. BREATHING EVEN AND UNLABORED, NO SOB NOTED. TRACH IN PLACE. GTUBE IN PLACE, FLUSHED WITH NO RESIDUAL, INFUSING NEPHRO AT 70ML/HR. HOB ELEVATED. NO S/S OF HYPER/HYPOGLYCEMIA NOTED. BED LOCKED AND IN LOWEST POSITION, CALL LIGHT IN REACH. WILL CONTINUE TO MONITOR.
[2020-02-05 20:00] VITALS: BP 102/65
--- NOTE | 2020-02-05 21:45 | NUR ---
MS RN NOTE: PATIENT BLOOD SUGAR LEVEL 127MG/DL, NO INSULIN GIVEN AT THIS TIME, PATIENT BLOOD SUGAR TRENDING LOW THROUGHOUT THE DAY. NO S/S OF HYPOGLYCEMIA NOTED. WILL CONTINUE TO MONITOR.
[2020-02-06] MEDS: BLOOD SUGAR DIAGNOSTIC 1 EACH STRIP IN SCH ×3 (00:21→13:05)
[2020-02-06] MEDS: IPRATROPIUM NEB FS 0.5 MG/2.5 ML AMPUL.NEB NEB SCH ×2 (00:53→07:38)
[2020-02-06] MEDS: ALBUTEROL FS 2.5 MG/0.5 ML VIAL.NEB NEB SCH ×2 (00:53→07:38)
--- NOTE | 2020-02-06 02:30 | NUR ---
MS MCCURDY NOTE: REPORT GIVEN TO DAVID FOR CONTINUATION OF CARE. WILL CONTINUE TO MONITOR. Addendum: 02/06/20 at 0356 by DAVID GAN RN 0230 report recieved from danny. will cont to monitor.
[2020-02-06] MEDS: NEPRO 1,000 ML BOTTLE GT SCH (03:13)
[2020-02-06] MEDS: INSULIN NPH, HUMAN ISOPHANE 100 UNIT/ML VIAL SQ SCH (05:30)
[2020-02-06] MEDS: INSULIN REGULAR, HUMAN 100 UNIT/ML 3 ML VIAL SQ PRN (05:31)
--- NOTE | 2020-02-06 06:56 | NUR ---
MS RN CLOSING NOTE: PATIENT RESTING IN BED, NO ACUTE DISTRESS NOTED. BREATHING EVEN AND UNLABORED, NO SOB NOTED. TRACH IN PLACE RESP EVEN AND UNLABORED. GTUBE IN PLACE, FLUSHED WITH NO RESIDUAL, INFUSING NEPHRO AT 70ML/HR. HOB ELEVATED. NO S/S OF HYPER/HYPOGLYCEMIA NOTED BS THIS AM WAS 148 REGULAR INSULIN HELD D/T BS TRENDING LOW, BUT SCHEDULED NPH GIVEN ORDERED. BED LOCKED AND IN LOWEST POSITION, CALL LIGHT IN REACH. WILL ENDORSE TO ONCOMING SHIFT. .
--- NOTE | 2020-02-06 07:05 | NUR ---
ms rn received on bed, awake,alert,oriented x3,non verbal patient, communicate through writing,with trach connected to aerosol, on g tube feeding at 70ml/liter,tolerated well, 2 g tubes intact,right g tube leaking ,not being used at this time, left g tube tolerating well w/ feeding,denies pain at this time,all needs attended.
[2020-02-06] MEDS: LEVOTHYROXINE SODIUM 25 MCG TABLET GT SCH (09:15)
[2020-02-06] MEDS: ASCORBIC ACID 500 MG TABLET GT SCH (09:15)
[2020-02-06 09:17] VITALS: BP 116/75
[2020-02-06] MEDS: FAMOTIDINE (20 MG) 20 MG TABLET GT SCH (09:17)
[2020-02-06] MEDS: PANTOPRAZOLE 40 MG/PACK PACK GT SCH (09:17)
[2020-02-06] MEDS: MIDODRINE HCL (5MG) 5 MG TABLET GT SCH (09:17)
[2020-02-06] MEDS: URSODIOL 300 MG CAPSULE GT SCH (09:17)
[2020-02-06] MEDS: VORICONAZOLE 200 MG TABLET GT SCH (09:23)
--- NOTE | 2020-02-06 09:30 | NUR ---
ms rn due meds given,tolerated well.will be discharge today.
--- NOTE | 2020-02-06 11:20 | NUR ---
ms rn patient will be d/c soon, report given to Alvarez boss at the post [facility].
--- NOTE | 2020-02-06 13:05 | NUR ---
ms rn patient was d/cd to post [facility],all needs attended.
== END 2020-02-06 13:05 | DRG 383 ==
LOC: ER 16:11 → TELE2 19:21 → TELE 02-02 11:08 → MED 02-03 20:01
PROVIDERS: ADMIT Internal Medicine; ATTEND Student in an Organized Health Care Education/Training Program
PROC: 5A1D70Z Performance of Urinary Filtration, Intermittent, Less than 6 Hours Per Day (ICD-10-PCS; 2020-02-02)
PROC: 0DB68ZX Excision of Stomach, Via Natural or Artificial Opening Endoscopic, Diagnostic (ICD-10-PCS; principal; 2020-02-03)
DX: K25.9 Gastric ulcer, unspecified as acute or chronic, without hemorrhage or perforation (principal); N18.6 End stage renal disease; G93.41 Metabolic encephalopathy; B19.10 Unspecified viral hepatitis B without hepatic coma; J96.10 Chronic respiratory failure, unspecified whether with hypoxia or hypercapnia; I13.2 Hypertensive heart and chronic kidney disease with heart failure and with stage 5 chronic kidney disease, or end stage renal disease; Z99.2 Dependence on renal dialysis; E03.9 Hypothyroidism, unspecified; D63.1 Anemia in chronic kidney disease; K29.70 Gastritis, unspecified, without bleeding; K21.00 Gastro-esophageal reflux disease with esophagitis, without bleeding; E11.22 Type 2 diabetes mellitus with diabetic chronic kidney disease; E11.51 Type 2 diabetes mellitus with diabetic peripheral angiopathy without gangrene; R13.10 Dysphagia, unspecified; Z79.4 Long term (current) use of insulin; M62.40 Contracture of muscle, unspecified site; Z93.1 Gastrostomy status; Z88.8 Allergy status to other drugs, medicaments and biological substances; Z79.899 Other long term (current) drug therapy; G90.8 Other disorders of autonomic nervous system; Z93.0 Tracheostomy status; K29.80 Duodenitis without bleeding; I50.9 Heart failure, unspecified
CPT/HCPCS: 31720; 36415; 71045-TC; 80048-TC; 80053-TC; 82728-TC; 82962-TC; 83540-TC; 83735-TC; 84100-TC; 84439-TC; 84443-TC; 84484-TC; 85025-TC; 86706; 87081-TC; 87340; 88305-TC; 88313-TC; 88342; 90935-TC; 93307-TC; 94640-TC; 94799-TC; A6403; C9113; G0378; J1815; J2354; J2405; J2704; J3490; U0003

== ENCOUNTER 2020-09-03 15:51 | Inpatient (IN) | payer MEDICARE, OTHER ==
[~2020-09-03] VITALS: Ht 167.6 cm; Wt 53.8 kg
[~2020-09-03 15:51] MED LIST changes: -AMIN30LI27 GT; -AMLO-213 GT; -CYCL25CA13 GT; -CYCL25CA7 GT; +ENTE0.5T GT; -ENTE0.5T4 GT; -FAMO20TA8 GT; +FOLI0.8T23 GT; +LIDO85CR9 TP; -MELA5TAB GT; +MIDO5TAB4 GT; +PANT40SU2 GT; -SEVE0.8P3 GT; -URSO300C12 GT; +URSO300C7 GT; -VITA1TAB56 GT; +[UNRECOGNIZED DRUG - OTHER] GT
--- NOTE | 2020-09-03 16:45 | NUR ---
alphonse, from [facility], sent by PMD for episode of low bp during HD. PT AAOX2, VSS. RR EVEN & UNLABORED. PT ABLE TO COMMUNICATE BY WRITING. DENIES CP, SOB, DIZZINESS, N/V AT THIS TIME. PT SEEN & EVAL'D BY DR. GALLEGOS. PLACED ON SENIOR MORTGAGE UNDERWRITER, SR. O2 SAT 100% 6L. WILL CONT TO MONITOR.
[2020-09-03 17:04] LABS: EOSINOPHILS % (AUTO) 3.7 % (0.0-6.0); HEMATOCRIT 34 % (39-51); HEMOGLOBIN 10.8 g/dL (13.5-17.5); LYMPHOCYTES # (AUTO) 0.8 /CMM (0.8-4.8); LYMPHOCYTES % (AUTO) 13.7 % (20.0-44.0); MEAN CORPUSCULAR HGB CONC 31 g/dl (31.0-36.0); MEAN CORPUSCULAR VOLUME 93 fL (80-96); MONOCYTES # (AUTO) 0.3 /CMM (0.1-1.30); MONOCYTES % (AUTO) 5.7 % (2.0-12.0); NEUTROPHILS # (AUTO) 4.3 /CMM (1.8-8.9); NEUTROPHILS % (AUTO) 76.9 % (43.0-81.0); PLATELET COUNT (AUTO) 114 /CMM (150-450); RED BLOOD CELL COUNT(AUTO) 3.69 MIL/uL (4.5-6.0); WHITE BLOOD COUNT (AUTO) 5.6 K/uL (4.3-11.0)
[2020-09-03 17:11] LABS: CALCIUM, SERUM 8.3 mg/dL (8.5-10.1); CARBON DIOXIDE 19 mmol/L (21-32); CHLORIDE 103 mmol/L (98-107); CREATININE 1.6 mg/dL (0.6-1.3); GLUCOSE 134 mg/dL (74-106); POTASSIUM 4.3 mmol/L (3.5-5.1); SODIUM SERUM 135 mmol/L (136-145); UREA NITROGEN, BLOOD 50 mg/dL (7-18)
[2020-09-03 17:17] LABS: ALBUMIN 3.1 g/dL (3.4-5.0); ALKALINE PHOSPHATASE 153 U/L (46-116); ASPARTATE AMINOTRANSFERASE 126 U/L (15-37); BILIRUBIN,DIRECT 0.6 mg/dL (0.0-0.2); TOTAL PROTEIN, SERUM 8.6 g/dL (6.4-8.2)
[2020-09-03 17:37] LABS: ALANINE AMINOTRANSFERASE 99 U/L (12-78)
--- NOTE | 2020-09-03 17:51 | NUR ---
PAGED DR. RG/HERI CORREIA.
--- NOTE | 2020-09-03 19:13 | NUR ---
PT ASLEEP, EASILY AWAKEN BY VERBAL STIMULI. RR EVEN & UNLABORED. DENIES CP, SOB, DIZZINESS, N/V AT THIS TIME. WILL CONT TO MONITOR.
[2020-09-03] MEDS ORDERED: BIMA2.5D5 EACHEYE (19:20)
[2020-09-03] MEDS ORDERED: PANT40SU2 GT (19:20)
[2020-09-03] MEDS ORDERED: POLY17PO4 GT (19:20)
[2020-09-03] MEDS ORDERED: EPOE1VIA6 SQ (19:20)
[2020-09-03] MEDS ORDERED: LIDO30AD10 TP (19:20)
[2020-09-03] MEDS ORDERED: MELA5TAB GT (19:20)
[2020-09-03] MEDS ORDERED: DIPH25CA51 GT (19:20)
[2020-09-03] MEDS ORDERED: SODI15OR6 GT (19:20)
[2020-09-03] MEDS ORDERED: QUET50TA PO (19:20)
[2020-09-03] MEDS ORDERED: TIMO5DRO35 EACHEYE (19:20)
[2020-09-03] MEDS ORDERED: INSU100V11 SQ (19:20)
[2020-09-03] MEDS ORDERED: ERYT3.5O9 LEFTEYE (19:20)
[2020-09-03] MEDS ORDERED: [UNRECOGNIZED DRUG - CODE] GT (19:20)
[2020-09-03] MEDS ORDERED: IPRA3AMP23 IH (19:20)
--- NOTE | 2020-09-03 19:30 | NUR ---
ETA FOR MIDLINE ON PT IS 2200 PER RN INSURANCE CLAIMS PROCESSOR.
[2020-09-03] MEDS ORDERED: DEXTROSE 50%-WATER 50 ML DISP.SYRIN IV PRN (20:00)
[2020-09-03] MEDS ORDERED: ZOLPIDEM TARTRATE 5 MG TABLET PO PRN (20:00)
[2020-09-03] MEDS ORDERED: Z GUARD REMEDY 2 OZ OINT TP PRN (20:00)
[2020-09-03] MEDS ORDERED: ONDANSETRON HCL/PF 4 MG/2 ML VIAL IVP PRN (20:00)
[2020-09-03] MEDS ORDERED: NEPRO VAN 237 ML CAN GT SCH (20:00)
[2020-09-03] MEDS: EPOETIN ALFA (10,000 UNIT) 10,000 UNIT/ML VIAL SQ SCH (20:00)
--- NOTE | 2020-09-03 20:15 | NUR ---
PT REFUSED COVID TEST, ERMD AWARE.
--- NOTE | 2020-09-03 20:46 | NUR ---
PER RN RESEARCH GREENHOUSE SUPERVISOR PT WILL BE GOING TO 102.
--- NOTE | 2020-09-03 21:31 | NUR ---
REPORT GIVEN TO KAZ CHILDRESS FOR ADAN.
--- NOTE | 2020-09-03 21:45 | NUR ---
SURFACE HYDROLOGIST ADMITTING NOTE RECEIVED REPORT FROM BYRON GONZALEZ RN. PATIENT A/OX3; NONVERBAL. ON T-PIECE TRACH AT 6LPM; TOLERATING WELL WITH NO SOB. EXTERNAL PRIVATE CLIENT ADVISOR READS NSR AT 76. DENIES PAIN OR DISCOMFORT AT THIS TIME. HD GIANNA CATH TO RCW; DRESSING C/D/I. GTUBE PEG TO RUQ AND LUQ INTACT. ABRASION TO BLE. ORIENTED PATIENT TO STAFF, ROOM, AND UNIT. ALL BELONGINGS ACCOUNTED FOR. SAFETY MEASURES IN PLACE: BED IN LOWEST LOCKED POSITION, SIDE RAILS UPX2, CALL LIGHT WITHIN EASY REACH, BED ALARMS ON. PATIENT IN STABLE CONDITION AND WILL CONTINUE PLAN OF CARE.
[2020-09-03 22:00] VITALS: BP 130/60
[2020-09-03] MEDS ORDERED: QUETIAPINE FUMARATE 25 MG TABLET PO SCH (22:00)
[2020-09-03] MEDS ORDERED: BIMATOPROST 2.5 ML DROPS OP SCH (22:00)
[2020-09-03] MEDS ORDERED: ERYTHROMYCIN BASE OPHTH 3.5 GM TUBE LEFTEYE SCH (22:00)
--- NOTE | 2020-09-03 22:00 | NUR ---
STORES LABORER NOTE - PICC LINE ROLAND NAVARRO INSERTED BECK PICCLINE #18G; PATENT AND INTACT. FLUSHES WELL.
[2020-09-03] MEDS: VORICONAZOLE 200 MG TABLET GT SCH (23:03)
[2020-09-03] MEDS ORDERED: EPOETIN ALFA (10,000 UNIT) 10,000 UNIT/ML VIAL ONE (23:13)
[2020-09-03] MEDS: BLOOD SUGAR DIAGNOSTIC 1 EACH STRIP IN SCH (23:27)
[2020-09-03] MEDS: INSULIN REGULAR, HUMAN 100 UNIT/ML 3 ML VIAL SQ PRN (23:28)
[2020-09-04] VITALS: BP 94/52
[2020-09-04] MEDS ORDERED: IV NS 0.9% 500 ML IV ONE (01:00)
--- NOTE | 2020-09-04 01:19 | NUR ---
MOTOR TRANSPORT INSPECTOR NOTE PATIENT BP 94/56 AND P 77. PATIENT C/O WEAKNESS, DIZZINESS, AND NAUSEA. NOTIFIED DR. CHEUNG WITH ORDERS FOR NS 500ML BOLUS. ADMINISTERED NS 500ML BOLUS AND ZOFRAN ORDERED. WILL CONTINUE TO ASSESS PATIENT.
[2020-09-04 04:00] VITALS: BP 116/77
--- NOTE | 2020-09-04 05:23 | NUR ---
COVID RAPID RESULT CAME BACK NEGATIVE FROM LAB
[2020-09-04] MEDS: BLOOD SUGAR DIAGNOSTIC 1 EACH STRIP IN SCH ×3 (06:22→18:02)
[2020-09-04] MEDS: INSULIN REGULAR, HUMAN 100 UNIT/ML 3 ML VIAL SQ PRN ×3 (06:23→18:03)
--- NOTE | 2020-09-04 06:51 | NUR ---
PASTEURISER OPERATOR ADMITTING NOTE PATIENT A/OX3; NONVERBAL. ON T-PIECE TRACH AT 6LPM; TOLERATING WELL WITH NO SOB. EXTERNAL FILES SUPERVISOR READS NSR AT 76. DENIES PAIN OR DISCOMFORT AT THIS TIME. HD GIANNA CATH TO RCW; DRESSING C/D/I. GTUBE PEG TO RUQ AND LUQ INTACT. ABRASION TO BLE. ORIENTED PATIENT TO STAFF, ROOM, AND UNIT. ALL BELONGINGS ACCOUNTED FOR. SAFETY MEASURES IN PLACE: BED IN LOWEST LOCKED POSITION, SIDE RAILS UPX2, CALL LIGHT WITHIN EASY REACH, BED ALARMS ON. PATIENT IN STABLE CONDITION AND WILL ENDORSE PLAN OF CARE TO ONCOMING MORNING RN.
[2020-09-04] MEDS ORDERED: LEVOTHYROXINE SODIUM 50 MCG TABLET GT SCH (07:00)
--- NOTE | 2020-09-04 07:06 | NUR ---
WIND TURBINE ERECTOR CLOSING NOTE PATIENT A/OX3; NONVERBAL. ON T-PIECE TRACH AT 6LPM; TOLERATING WELL WITH NO SOB. EXTERNAL CONSTRUCTION MGR READS NSR AT 76. DENIES PAIN OR DISCOMFORT AT THIS TIME. HD GIANNA CATH TO RCW; DRESSING C/D/I. GTUBE PEG TO RUQ AND LUQ INTACT. ABRASION TO BLE. ORIENTED PATIENT TO STAFF, ROOM, AND UNIT. ALL BELONGINGS ACCOUNTED FOR. SAFETY MEASURES IN PLACE: BED IN LOWEST LOCKED POSITION, SIDE RAILS UPX2, CALL LIGHT WITHIN EASY REACH, BED ALARMS ON. PATIENT IN STABLE CONDITION AND WILL ENDORSE PLAN OF CARE TO ONCOMING MORNING RN.
[2020-09-04 07:14] LABS: BASOPHILS % (AUTO) 0.2 % (0.0-2.0); EOSINOPHILS % (AUTO) 4.8 % (0.0-6.0); HEMATOCRIT 27 % (39-51); LYMPHOCYTES # (AUTO) 0.9 /CMM (0.8-4.8); MEAN CORPUSCULAR HGB CONC 33 g/dl (31.0-36.0); MEAN CORPUSCULAR VOLUME 90 fL (80-96); MONOCYTES # (AUTO) 0.2 /CMM (0.1-1.30); MONOCYTES % (AUTO) 7.1 % (2.0-12.0); NEUTROPHILS # (AUTO) 2.1 /CMM (1.8-8.9); NEUTROPHILS % (AUTO) 61.9 % (43.0-81.0); PLATELET COUNT (AUTO) 100 /CMM (150-450); RED BLOOD CELL COUNT(AUTO) 3.02 MIL/uL (4.5-6.0); WHITE BLOOD COUNT (AUTO) 3.4 K/uL (4.3-11.0)
[2020-09-04 07:41] LABS: CREATININE 2.2 mg/dL (0.6-1.3); MAGNESIUM 2.3 mg/dL (1.8-2.4); PHOSPHORUS 3.8 mg/dL (2.5-4.9); POTASSIUM 5.1 mmol/L (3.5-5.1)
[2020-09-04 08:00] VITALS: BP 150/64
[2020-09-04] MEDS ORDERED: PANTOPRAZOLE 40 MG/PACK PACK GT SCH (09:00)
[2020-09-04] MEDS ORDERED: TIMOLOL 0.5% SOLN OPHTH 5 ML BOTTLE OP SCH (09:00)
[2020-09-04] MEDS ORDERED: LIDOCAINE 5% (PATCH) 1 EA PATCH TP SCH (09:00)
[2020-09-04] MEDS ORDERED: cycloSPORINE SOLUTION 500 MG/5 ML UDC GT SCH (09:00)
[2020-09-04] MEDS: URSODIOL 300 MG CAPSULE GT SCH ×3 (10:00→17:04)
[2020-09-04] MEDS: VORICONAZOLE 200 MG TABLET GT SCH (10:00)
[2020-09-04 12:00] VITALS: BP 125/64
[2020-09-04 16:00] VITALS: BP 145/81
[2020-09-04] MEDS: EPOETIN ALFA (10,000 UNIT) 10,000 UNIT/ML VIAL SQ SCH (16:49)
--- NOTE | 2020-09-04 19:27 | NUR ---
RN CLOSING NOTES PATIENT IS ALERT AND ORIENTED AND ABLE TO VERBALIZE NEEDS BY WRITING AND POINTING. PATIENT IS ON 6 LITERS T PIECE WITH 02 SATURATION OF 99%. PATIENT IS ON NEPRO 70 CC/HOUR. NO S/S OF HYPO OR HYPERGLYCEMIA DURING SHIFT. ENDORSED TO NEXT SHIFT TO FOLLOW UP REGARDING PATIENT'S DISCHARGE. PATIENT PROVIDED G TUBE CARE AND PICTURES PLACED IN CHART. HOB KEPT ELEVATED. BED IS IN LOWEST AND LOCKED POSITION. NOTED WITH URINE OUTPUT OF 850 CC IN URINAL.
--- NOTE | 2020-09-04 19:32 | NUR ---
CALLED DAUGHTER AND SON TO INFORM THEM OF TRANSFER TO [place] . UNABLE TO GET HOLD OF FAMILY. LEFT MESSAGE.
--- NOTE | 2020-09-04 20:19 | NUR ---
RN NOTE PATIENT DISCHARGE TO [facility] WITH STABLE VITAL SIGNS, ALERT ORIENTED X2-3, NO ACUTE DISTRESS NOTED, BREATHING UNLABORED. DISCHARGE INSTRUCTIONS GIVEN INCLUDING HEALTH TEACHINGS. ALL BELONGINGS ACCOUNTED FOR. IV ACCESS REMOVED, NO REDNESS, NO BLEEDING, NO SWELLING NOTED. PICKED UP VIA AMBULANCE IN A GURNEY ACCOMPANIED BY 2 EMT PERSONNEL IN STABLE CONDITION. MASS SPECTROMETRY SPECIALIST MADE AWARE.
--- NOTE | 2020-09-04 20:21 | NUR ---
RN NOTES CALLED ASTON FLETCHER [phone] TO INFORM ABOUT PT'S DC; ROUTED TO .LEFT MESSAGE AND REQUESTED FOR CALLBACK. COST ACCOUNTANT MADE AWARE.
[2020-09-04] MEDS ORDERED: LATANOPROST EYE DROP 0.005% 2.5 ML BOTTLE OP SCH (22:00)
== END 2020-09-04 20:42 | DRG 640 ==
LOC: ER 15:57 → TELE1 20:49
PROVIDERS: ADMIT Nurse Practitioner Acute Care; ATTEND Nurse Practitioner Acute Care
PROC: 05H933Z Insertion of Infusion Device into Right Brachial Vein, Percutaneous Approach (ICD-10-PCS; principal; 2020-09-03)
DX: E86.9 Volume depletion, unspecified (principal); N18.6 End stage renal disease; R53.2 Functional quadriplegia; J96.10 Chronic respiratory failure, unspecified whether with hypoxia or hypercapnia; E44.0 Moderate protein-calorie malnutrition; G93.40 Encephalopathy, unspecified; D68.59 Other primary thrombophilia; I13.2 Hypertensive heart and chronic kidney disease with heart failure and with stage 5 chronic kidney disease, or end stage renal disease; Z99.2 Dependence on renal dialysis; D63.1 Anemia in chronic kidney disease; Z93.1 Gastrostomy status; Z20.822 Contact with and (suspected) exposure to COVID-19; Z93.0 Tracheostomy status; E11.51 Type 2 diabetes mellitus with diabetic peripheral angiopathy without gangrene; E11.22 Type 2 diabetes mellitus with diabetic chronic kidney disease; M62.40 Contracture of muscle, unspecified site; E03.9 Hypothyroidism, unspecified; K73.9 Chronic hepatitis, unspecified; Z88.8 Allergy status to other drugs, medicaments and biological substances; Z79.51 Long term (current) use of inhaled steroids; Z79.4 Long term (current) use of insulin; Z79.899 Other long term (current) drug therapy; I50.9 Heart failure, unspecified; I95.3 Hypotension of hemodialysis; M89.8X9 Other specified disorders of bone, unspecified site
CPT/HCPCS: 36415; 70450-TC; 71045-TC; 80048-TC; 80061-TC; 80076-TC; 82728-TC; 82962-TC; 83540-TC; 83605-TC; 83735-TC; 84100-TC; 84439-TC; 84484-TC; 85025-TC; 85730-TC; 87040-TC; 87081-TC; 93307-TC; A6253; G0378; J0885; J1815; J2405; J7040; J7502; U0003